=== PATIENT | male | born 1945 | race Caucasian/White ===

== ENCOUNTER 2021-02-13 15:23 | Inpatient (IN) | payer MEDICARE, OTHER, SELFPAY ==
[2021-02-13] VITALS (9 sets, daily range): BP systolic 102–123; BP diastolic 57–69; PULSE 61–75; RESP 16–18; TEMP 36.5–36.9; O2SAT 95–100; BMI 34.5; BMI 35.6; BMI 34.2
--- NOTE | 2021-02-13 16:17 | XRR_ITS ---
PROCEDURE INFORMATION: Exam: XR Chest Exam date and time: 02/13/2021 4:17 PM Age: 75 years old Clinical indication: Pain; Chest pressure; Additional info: Chest tpain TECHNIQUE: Imaging protocol: XR of the chest. Views: 1 view. COMPARISON: No relevant prior studies available. FINDINGS: Lungs: Emphysematous changes. Prominent coarse interstitial markings suggesting interstitial fibrosis. Pleural spaces: Unremarkable. No pleural effusion. No pneumothorax. Heart/Mediastinum: Cardiomegaly. Bones/joints: Unremarkable. XR/XR chest 1V portable [id number] IMPRESSION: 1. Cardiomegaly. 2. Emphysematous changes. 3. Prominent coarse interstitial markings suggesting interstitial fibrosis. Radiation Dose CTDIVOL = (mGy): DLP = (mGy-cm)
--- NOTE | 2021-02-13 16:19 | ED_ITS ---
HPI - Chest Pain General: Chief Complaint: Shortness of Breath/Dyspnea Stated Complaint: SOB Time Seen by Provider: 02/13/21 15:39 History of Present Illness: HPI narrative: This patient presents to emergency department by private vehicle. Both he and his spouse are traveling from [place] on vacation. He has chronic kidney disease and requires 3 times a week dialysis. He received his last dialysis and [place] this morning. He has felt weak over the past couple of days and had some episodes of chest pain today that concerned the so therefore she brought him to the emergency department. Chest pain is gone now. He states it was relieved by nitroglycerin given by his . He has known coronary artery disease and has had stents placed a number of years ago as well as 2 years ago. He is currently taking Eliquis for history of atrial fib. He also has diabetes. His is concerned that he may have been too rapidly dialyzed while on vacation due to the short duration dialysis. He states he is not eaten today but thus not unusual pr edialysis. He denies any fevers or chills or other illness. His is not ill. They both had COVID-19 and are both immunized as well to COVID-19. He is taking his usual medications today. MD complaint: chest heaviness Pertinent past history: coronary artery disease Onset: during rest Relieving factors: nitroglycerin Associated symptoms: Reports no associated symptoms; Deny abdominal pain, dyspnea, fever(s), nausea, palpitations or vomiting Review of Systems Const: Denies: fever(s) or chills Eyes: Denies: change in vision ENMT: Denies: throat pain or odynophagia Card: Reports: chest pain and lightheadedness; Denies: palpitations, irregular heart rhythm or swelling of feet/ankles Resp: Denies: dyspnea, productive cough or non-productive cough GI: Denies: abdominal pain, nausea or vomiting : Denies: flank pain Musc: Denies: neck pain, back pain or extremity pain Skin/Breast: Denies: rash Neuro: Denies: headache(s) or numbness in extremities Psych: Denies: anxiety or depression Patrick/Lymph: Reports: easy bruising; Denies: easy bleeding or petechiae All/Imm: Denies: urticaria Physical Exam Const: COMMON NORMALS: no acute distress, patient oriented x3 and alert GENERAL APPEARANCE: cooperative ORIENTATION/CONSCIOUSNESS: Yes awake HENMT: COMMON NORMALS: normocephalic HEAD & SCALP: normal to inspection and normocephalic FACE & SINUS: normal facial exam MOUTH: other (Mask per protocol) Eye: COMMON NORMALS: Equal, round and reactive pupils present, EOMs intact bilaterally and no scleral icterus PUPIL: Yes Equal, round and reactive pupils present Neck/C-Spine: COMMON NORMALS: full ROM, no lymphadenopathy, supple, no JVD and No carotid bruits Chest: COMMONS NORMALS: normal inspection of the chest Resp: COMMON NORMALS: normal respiratory effort, No retractions, No use of accessory muscles and clear to auscultation bilaterally AUSCULTATION: clear to auscultation bilaterally Cardio: COMMON NORMALS: no JVD, regular rhythm, No murmurs present (Cardio) and Peripheral pulses 2+ throughout RHYTHM: regular rhythm PERIPHERAL PULSES: Peripheral pulses 2+ throughout GI: COMMON NORMALS: Normal to inspection, nondistended, normoactive bowel sounds present, Soft to palpation, non-tender and No hepatosplenomegaly present PALPATION: Yes Soft to palpation and Yes No hepatosplenomegaly present : COMMON NORMALS: Yes no CVA tenderness BLADDER/KIDNEY EXAM: Yes no CVA tenderness Back/Pelvis: COMMON NORMALS: no CVA tenderness, thoracic and lumbar spine normal to inspection, no thoracic nor lumbar tenderness, thoraco-lumbar ROM normal and straight leg raise negative bilaterally Extremity: COMMON NORMALS: normal to inspection, capillary refill normal, no calf tenderness and no pedal edema LEFT UPPER EXTREMITY: Yes lower arm (Fistula noted in the left forearm.) Neuro: COMMON NORMALS: patient oriented x3, moves all extremities and no focal motor deficits SENSORIUM/ORIENTATION: Yes alert SPEECH: speech normal Skin: COMMON NORMALS: no rashes or lesions noted GENERAL SKIN EXAM: no rashes or lesions noted Course Reevaluation(s): Reevaluation #1: The patient has significant anemia more so than I would expect even with chronic kidney disease. With known coronary artery disease it is imperative that we give him blood. We will also have to cycle his troponins to ensure that he is not suffering any ongoing myocardial injury. He is currently denies any chest pain at this time. I discussed this with both patient and spouse who are in agreement. We will go ahead and contact the hospitalist regarding observation status. Vital Signs: Vital signs: Vital Signs Temperature 97.7 F 02/13/21 15:31 Pulse Rate 74 02/13/21 17:18 Respiratory Rate 18 02/13/21 17:18 Blood Pressure 109/62 02/13/21 17:18 Pulse Oximetry 95 02/13/21 17:18 MDM - Chest Pain Lab Data: Labs: Lab Results 02/13/21 02/13/21 02/13/21 16:30 16:30 16:30 WBC 10.5 10^3/uL H 10 ^3/uL (4.0-10.0) RBC 1.79 10^6/uL L 10 ^6/uL (4.1-5.3) Hgb 5.9 g/dL L* g/dL (11.7-16.6) Hct 19.2 % L* % (42.0-52.0) MCV 107.3 fl H fl (80-94) MCH 33.0 pg pg (28.0-34.0) MCHC 30.7 g/dL g/dL (30.0-36.0) RDW 16.3 % H % (12.1-15.1) Plt Count 198 10^3/cmm 10^3 /cmm (130-400) MPV 10.6 fL H fL (7.4-10.4) Neut % (Auto) 80.6 % % Lymph % (Auto) 11.1 % % [place] % (Auto) 6.7 % % Eos % (Auto) 0.4 % % Baso % (Auto) 0.3 % % Neut # (Auto) 8.49 10^3/uL H 10 ^3/uL (1.8-7.7) Lymph # (Auto) 1.2 10^3/uL 10^3/ uL (0.8-4.8) [place] # (Auto) 0.7 10^3/uL 10^3/ uL (0.2-0.9) Eos # (Auto) 0.0 10^3/uL 10^3/ uL (0.0-0.8) Baso # (Auto) 0.0 10^3/uL 10^3/ uL (0.0-0.1) Nucleated RBC % (a uto) 0 % % Nucleated RBCs # 0.0 /100WBC /100W BC Sodium 131 mmol/L L mmol /L (136-145) Potassium 3.9 mmol/L mmol/L (3.5-5.1) Chloride 92 mmol/L L mmol/ L (98-107) Carbon Dioxide 21 mmol/L L mmol/ L (22-29) Anion Gap 21.9 H (5-19) BUN 27 mg/dL H mg/dL (8-23) Creatinine 3.1 mg/dL H mg/dL (0.7-1.2) GFR Calculation Not Reportable Glucose 289 mg/dL H mg/dL (65-115) Calculated Osmolal ity 288 mOsm/kg mOsm/ kg (285-295) Calcium 8.4 mg/dL L mg/dL (8.5-10.5) Magnesium 2.0 mg/dL mg/dL (1.7-2.3) Total Bilirubin 0.4 mg/dL mg/dL (0.15-1.2) AST 15 U/L U/L (0-40) ALT 12 U/L U/L (0-41) Alkaline Phosphata se 78 IU/L IU/L (40-130) Troponin T Baselin e 67 ng/L H ng/L (0-15) Total Protein 6.2 g/dL L g/dL (6.6-8.7) Albumin 3.2 g/dL L g/dL (3.5-5.2) Globulin 3.0 g/dL g/dL (1.3-4.6) EKG Data^: EKG 1: Attestation: I personally reviewed and interpreted this EKG as follows: (Patient has ventricular rate of 74 bpm. Does have first-degree AV block. Appears to be in sinus rhythm. No acute ST-T wave changes noted.) Discharge Plan Discharge Patient Disposition: Placed in Observation Clinical Impression: Elevated troponin Anemia Qualifiers: Anemia type: due to chronic kidney disease Chronic kidney disease stage: on chronic dialysis Qualified Code(s): N18.6 - End stage renal disease Chronic kidney disease Qualifiers: Chronic kidney disease stage: on chronic dialysis Qualified Code(s): N18.6 - End stage renal disease Coding Level of Care Code ED Roll Cleaner for [facility] Fwd Exam Comprehensive
[2021-02-13 17:20] LABS: Basophils % 0.3 %; Eosinophils % 0.4 %; Lymphocytes # 1.2 10^3/uL (0.8-4.8); Lymphocytes % 11.1 %; Mean Corpuscular HGB Conc 30.7 g/dL (30.0-36.0); Mean Corpuscular Volume 107.3 fl (80-94); Mean Platelet Volume 10.6 fL (7.4-10.4); Monocytes # 0.7 10^3/uL (0.2-0.9); Monocytes % 6.7 %; Neutrophils # 8.49 10^3/uL (1.8-7.7); Neutrophils % 80.6 %; Nucleated Red Blood Cells % 0 %; Platelet Count 198 10^3/cmm (130-400); Red Blood Count 1.79 10^6/uL (4.1-5.3); Red Cell Distribution Width 16.3 % (12.1-15.1); White Blood Count 10.5 10^3/uL (4.0-10.0)
[2021-02-13 17:43] LABS: Alanine Aminotransferase 12 U/L (0-41); Albumin Level 3.2 g/dL (3.5-5.2); Alkaline Phosphatase 78 IU/L (40-130); Anion Gap 21.9 (5-19); Aspartate Amino Transferase 15 U/L (0-40); Blood Urea Nitrogen 27 mg/dL (8-23); Calcium 8.4 mg/dL (8.5-10.5); Carbon Dioxide 21 mmol/L (22-29); Chloride 92 mmol/L (98-107); Glucose 289 mg/dL (65-115); Osmolality Calculated 288 mOsm/kg (285-295); Potassium 3.9 mmol/L (3.5-5.1); Sodium 131 mmol/L (136-145); Total Bilirubin 0.4 mg/dL (0.15-1.2); Total Protein 6.2 g/dL (6.6-8.7)
[2021-02-13 17:44] LABS: Troponin(5th) Baseline 67 ng/L (0-15)
[2021-02-13 17:54] LABS: Hematocrit 19.2 % (42.0-52.0); Hemoglobin 5.9 g/dL (11.7-16.6)
--- NOTE | 2021-02-13 18:18 | ECG_ITS ---
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 Measurements Intervals [place] Rate: 73 P: 139 CT: 252 QRS: 11 QRSD: 108 T: 64 QT: 417 QTc: 460 Interpretive Statements SINUS RHYTHM WITH FIRST DEGREE AV BLOCK WITH OCCASIONAL VENTRICULAR PREMATURE COMPLEXES NONSPECIFIC T-WAVE ABNORMALITY No previous ECG available for comparison Electronically Signed On 02-14-2021 13:24:53 BENCH WORKER BINDING by Lilia Meza M.D. [email or web address]/[id number]
[2021-02-13 19:15] LABS: Troponin 5 2HR 70.93 ng/L (0-15); Troponin 5 2HR Delta 3.93 ABS# (0-10)
[2021-02-13] MEDS: HYDROcodone-acetaminophen 10-325 mg Tablet 1 TAB PO (19:35)
--- NOTE | 2021-02-13 19:53 | PM.HP ---
Providers/Chief Complaint Chief Complaint: SOB History of Present Illness Morales Jerez is a 75 year old male with past medical history of coronary artery disease, hypertension, atrial fibrillation, on Eliquis, dyslipidemia, COPD, diabetes, chronic anemia, and end-stage renal disease on hemodialysis who is presenting to emergency room with complaints of shortness of breath and chest pain which started about 2 weeks ago and gradually got worse. The patient states that his chest pain got better with nitroglycerin earlier. He is from a different state and travels with his . They have scheduled their dialysis treatments in different facilities. Last dialysis was in [place] this morning. He was told then that he had severe anemia. Today in the emergency room his hemoglobin is 5.9. He reports one episode of hematuria about 2 months ago which resolved. He reports that his stool is always dark due to medications that he takes for his end-stage renal disease. Never had blood in the stool. He also mentions that his doctors in [place] were considering stress test. His troponin was elevated today 67 with delta being only 4. Sinus rhythm with nonspecific T wave abnormalities and first-degree AV block. No acute ischemia. The patient reports previous anemia. Review of Systems General: Reports: 10 or more systems reviewed and unremarkable except in HPI and below Medications/Allergies Home Medications Medication Instructions Recorded Confirmed Last Taken Type apixaban [Eliquis] 2.5 mg PO BID 02/13/21 02/13/21 02/12/21 History aspirin 81 mg PO DAILY 02/13/21 02/13/21 02/12/21 History cyclobenzaprine 10 mg PO TID PRN 02/13/21 02/13/21 Unknown History dulaglutide [Trulicity] 1.5 mg SUBCUT Q7D 02/13/21 02/13/21 02/11/21 History escitalopram oxalate 20 mg PO DAILY 02/13/21 02/13/21 02/12/21 History ferrous sulfate [FeroSul] 325 mg PO DAILY 02/13/21 02/13/21 02/12/21 History hydrocodone-acetaminophen 1 tab PO Q6H PRN 02/13/21 02/13/21 Unknown History insulin glargine [Lantus Solostar 30 unit SUBCUT BEDTIME 02/13/21 02/13/21 02/12/21 History U-100 Insulin] insulin lispro [Humalog KwikPen See Rx Instructions .ROUTE .COMPLEX 02/13/21 02/13/21 Unknown History Insulin] metoprolol tartrate 50 mg PO BID 02/13/21 02/13/21 Unknown History nitroglycerin 0.4 mg SUBLINGUAL Q5MIN PRN 02/13/21 02/13/21 02/13/21 History omega-3 fatty acids-fish oil [Fish 1 cap PO BID 02/13/21 02/13/21 02/12/21 History Oil] rosuvastatin 40 mg PO DAILY 02/13/21 02/13/21 02/12/21 History sucroferric oxyhydroxide [Velphoro] 500 mg PO .TID & AT BEDTIME 02/13/21 02/13/21 02/12/21 History Allergies Allergy/AdvReac Type Severity Reaction Status Date / Time codeine AdvReac ADR-Nausea Verified 02/13/21 19:26 Vitals/I&O/Wt Last Vital Signs Temp 97.7 F 02/13/21 15:31 Pulse 74 02/13/21 17:18 Resp 18 02/13/21 17:18 BP 109/62 02/13/21 17:18 Pulse Ox 95 02/13/21 17:18 Weight last 48 hrs Weight 112.491 kg Physical Exam Narrative: EXAM NARRATIVE: The patient is awake alert oriented. No acute distress. Mood and affect are appropriate. Responses are adequate. Normal speech. Skin warm and dry. Moist mucous brains Eyes PERRL, extraocular muscles are intact Neck supple. No JVD Lungs are clear to auscultation bilaterally. No wheezes or crackles Heart S1, S2, regular Abdomen soft, nontender, bowel sounds are present Extremities trace edema no cyanosis no calf tenderness bilaterally Neuro examination is nonfocal. Data : 02/13/21 16:30 02/13/21 16:30 Other Labs: Laboratory Results WBC 10.5 10^3/uL (4.0-10.0) H 02/13/21 16:30 RBC 1.79 10^6/uL (4.1-5.3) L 02/13/21 16:30 Hgb 5.9 g/dL (11.7-16.6) L* 02/13/21 16:30 Hct 19.2 % (42.0-52.0) L* 02/13/21 16: MCV 107.3 fl (80-94) H 02/13/21 16:30 MCH 33.0 pg (28.0-34.0) 02/13/21 16: MCHC 30.7 g/dL (30.0-36.0) 02/13/21 16:30 RDW 16.3 % (12.1-15.1) H 02/13/21 16:30 Plt Count 198 10^3/cmm (130-400) 02/13/21 16:30 MPV 10.6 fL (7.4-10.4) H 02/13/21 16:30 Neut % (Auto) 80.6 % 02/13/21 16:30 Lymph % (Auto) 11.1 % 02/13/21 16:30 [place] % (Auto) 6.7 % 02/13/21 16:30 Eos % (Auto) 0.4 % 02/13/21 16:30 Baso % (Auto) 0.3 % 02/13/21 16:30 Neut # (Auto) 8.49 10^3/uL (1.8-7.7) H 02/13/21 16:30 Lymph # (Auto) 1.2 10^3/uL (0.8-4.8) 02/13/21 16:30 [place] # (Auto) 0.7 10^3/uL (0.2-0.9) 02/13/21 16:30 Eos # (Auto) 0.0 10^3/uL (0.0-0.8) 02/13/21 16:30 Baso # (Auto) 0.0 10^3/uL (0.0-0.1) 02/13/21 16:30 Nucleated RBC % (auto) 0 % 02/13/21 16: Nucleated RBCs # 0.0 /100WBC 02/13/21 16:30 Sodium 131 mmol/L (136-145) L 02/13/21 16:30 Potassium 3.9 mmol/L (3.5-5.1) 02/13/21 16:30 Chloride 92 mmol/L (98-107) L 02/13/21 16:30 Carbon Dioxide 21 mmol/L (22-29) L 02/13/21 16:30 Anion Gap 21.9 (5-19) H 02/13/21 16:30 BUN 27 mg/dL (8-23) H 02/13/21 16:30 Creatinine 3.1 mg/dL (0.7-1.2) H 02/13/21 16:30 GFR Calculation Not Reportable 02/13/21 16:30 Glucose 289 mg/dL (65-115) H 02/13/21 16:30 Calculated Osmolality 288 mOsm/kg (285-295) 02/13/21 16:30 Calcium 8.4 mg/dL (8.5-10.5) L 02/13/21 16:30 Magnesium 2.0 mg/dL (1.7-2.3) 02/13/21 16:30 Total Bilirubin 0.4 mg/dL (0.15-1.2) 02/13/21 16:30 AST 15 U/L (0-40) 02/13/21 16:30 ALT 12 U/L (0-41) 02/13/21 16:30 Alkaline Phosphatase 78 IU/L (40-130) 02/13/21 16:30 Troponin T Baseline 67 ng/L (0-15) H 02/13/21 16:30 Troponin T 120 Minute 70.93 ng/L (0-15) H 02/13/21 18:41 Delta Troponin T 3.93 ABS# (0-10) 02/13/21 18:41 Total Protein 6.2 g/dL (6.6-8.7) L 02/13/21 16:30 Albumin 3.2 g/dL (3.5-5.2) L 02/13/21 16:30 Globulin 3.0 g/dL (1.3-4.6) 02/13/21 16:30 Blood Type O Positive 02/13/21 18:41 Rho(D) Type Positive 02/13/21 18:41 Antibody Screen Negative 02/13/21 18:41 Impressions Chest X-Ray 02/13/21 16:17 IMPRESSION: 1. Cardiomegaly. 2. Emphysematous changes. 3. Prominent coarse interstitial markings suggesting interstitial fibrosis. Radiation Dose CTDIVOL = (mGy): DLP = (mGy-cm) A&P Assessment and plan (1) Anemia: Status: Acute Qualifiers: Anemia type: due to chronic kidney disease Chronic kidney disease stage: on chronic dialysis Qualified Code(s): N18.6 - End stage renal disease; D63.1 - Anemia in chronic kidney disease; Z99.2 - Dependence on renal dialysis (2) Elevated troponin: Status: Acute (3) Troponin I above reference range: Status: Acute (4) End stage renal disease: Status: Acute (5) Chest pain: Status: Acute (6) Coronary artery disease: Status: Acute (7) Diabetes: Status: Acute (8) Atrial fibrillation: Status: Acute Additional A&P Information Morales Jerez is a 75 year old male with past medical history of coronary artery disease, hypertension, atrial fibrillation, on Eliquis, dyslipidemia, COPD, diabetes, chronic anemia, and end-stage renal disease on hemodialysis who is presenting to emergency room with complaints of chest pain, shortness of breath. Is found to have severe anemia. No evidence of active bleeding at this point. Most likely it is related to chronic kidney disease. Being admitted for observation. We will closely monitor his H&H every 6 hours. 2 units are ordered in the emergency room. I will order anemia work-up. If fecal occult blood testing is positive we will ask for GI consult. Chest pain and shortness of breath most likely due to severe anemia. He has history of coronary artery disease and most likely has demand ischemia. Will manage it with transfusion. We will monitor his troponin level and EKG. If the pain persists after the transfusion will consider cardiology work-up. Otherwise he can be discharged and he can follow-up with his primary cable former to follow previous plan of care. We will continue his home aspirin, statin and beta-ruperto. History of atrial fibrillation. We will continue his home medications except for Eliquis. If the fecal occult blood testing is negative we will resume it. Hyponatremia. Most likely due to kidney disease. Diabetes. Continue home medications and insulin sliding scale. End-stage renal disease. His dialysis was today. Most likely he will might be able to go home tomorrow and continue follow-up with his primary care team. CODE STATUS. He wants to be full code. The plan of care was discussed with the patient and his . They verbalized understanding and agreement. Attestations Medical Necessity Statement*: Observation Coding Level of Care Code Acute Shoveler for [facility] Fwd Diagnoses Anemia N18.6; D63.1; Z99.2 Anemia type: due to chronic kidney disease Chronic kidney disease stage: on chronic dialysis Elevated troponin R77.8 Troponin I above reference range R77.8 End stage renal disease N18.6 Chest pain R07.9 Coronary artery disease I25.10 Diabetes E11.9 Atrial fibrillation I48.91
[2021-02-13 21:15] LABS: Glucose Point of Care 220 mg/dL (70-110)
[2021-02-13 21:27] LABS: Vitamin B12 251 pg/mL (232-1245)
[2021-02-13] MEDS: insulin lispro 100 unit/1 mL SUBCUT (21:40)
[2021-02-13] MEDS: insulin glargine 100 units/1 mL 30 UNIT SUBCUT (21:40)
--- NOTE | 2021-02-13 22:18 | ECG_ITS ---
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 Measurements Intervals [place] Rate: 71 P: 114 HI: 262 QRS: 17 QRSD: 105 T: 64 QT: 414 QTc: 450 Interpretive Statements SINUS RHYTHM WITH FIRST DEGREE AV BLOCK NONSPECIFIC T-WAVE ABNORMALITY Compared to ECG 02/13/2021 17:48:45 Ventricular premature complex(es) no longer present T-wave abnormality still present Electronically Signed On 02-14-2021 13:24:19 PEDIATRICIAN/MEDICAL DOCTOR by Lilia Meza M.D. [id number]
[2021-02-13] MEDS: sodium chloride 0.9% (100 ml) 100 ML 10 ML (22:35)
[2021-02-13 23:21] LABS: Hemoglobin 5.6 g/dL (11.7-16.6)
[2021-02-13 23:22] LABS: Hematocrit 17.7 % (42.0-52.0)
[2021-02-13 23:36] LABS: Iron 73 ug/dL (59-158); Transferrin 178 mg/dL (200-360)
[2021-02-13 23:50] LABS: Ferritin 1200 ng/mL (30-400)
[2021-02-14] VITALS (18 sets, daily range): BP systolic 102–128; BP diastolic 6–64; PULSE 63–102; RESP 16–18; TEMP 36.5–36.9; O2SAT 94–100
[2021-02-14 06:46] LABS: Glucose Point of Care 170 mg/dL (70-110)
[2021-02-14] MEDS: aspirin 81 mg EC Tablet PO (09:38)
[2021-02-14] MEDS: docusate sodium 100 mg Capsule PO (09:38)
[2021-02-14] MEDS: escitalopram 10 mg Tablet 20 MG PO (09:39)
[2021-02-14] MEDS: metoprolol tartrate 50 mg Tablet PO (09:39)
[2021-02-14] MEDS: atorvastatin 40 mg Tablet 80 MG PO (09:41)
[2021-02-14] MEDS: famotidine 20 mg Tablet PO (09:41)
[2021-02-14 10:29] LABS: Hematocrit 26.9 % (42.0-52.0)
[2021-02-14 10:48] LABS: Anion Gap 16.9 (5-19); Blood Urea Nitrogen 45 mg/dL (8-23); Calcium 8.6 mg/dL (8.5-10.5); Carbon Dioxide 25 mmol/L (22-29); Chloride 97 mmol/L (98-107); Glucose 157 mg/dL (65-115); Magnesium 2.2 mg/dL (1.7-2.3); Osmolality Calculated 295 mOsm/kg (285-295); Potassium 3.9 mmol/L (3.5-5.1); Sodium 135 mmol/L (136-145)
--- NOTE | 2021-02-14 10:54 | USCV_ITS ---
Morales Jerez Age: 75 Gender: M : 1945 Exam Date: 02/14/2021 12:32 Ordering Phys: Torri Meehan MD Technologist: Exam Location: [facility] [place] Indication: CHEST PAIN BP: 134 / 78 HR: 62 Rhythm: Sinus Technical Quality: Adequate MEASUREMENTS (Male / Female) Normal Values 2D ECHO LVOT Diameter 2.0 cm LV Ejection Fraction MOD 2C 61.0 % LV Ejection Fraction 2C AL 60.8 % LA Diameter 4.0 cm LA Width 4.3 cm LA Height 5.8 cm RA Width 5.0 cm RA Height 5.6 cm Aorta at Sinotubular Diameter 3.5 cm DOPPLER AV Peak Velocity 145.0 cm/s LVOT Peak Velocity 99.0 cm/s AV Area Cont Eq vti 1.7 cm squared AV Area Cont Eq pk 2.2 cm squared MV Area PHT 5.0 cm squared Mitral E to A Ratio 0.9 MV E' Velocity 47.5 cm/s Mitral E to MV E' Ratio 9.5 Mitral E to LV E' Lateral Ratio 9.9 Mitral E to LV E' Septal Ratio 9.1 TR Peak Velocity 268.7 cm/s TR Peak Gradient 28.9 mmHg TV Peak E Velocity 111.0 cm/s Right Atrial Pressure 3.0 mmHg Pulmonary Artery Systolic Pressu 31.9 mmHg FINDINGS Left Ventricle Normal left ventricular size, systolic function and wall thickness, with no regional wall motion abnormalities. Left ventricular ejection fraction is estimated at 60%. Right Ventricle Normal right ventricular size and systolic function. Right ventricular systolic pressure 51 mmHg. Right Atrium Mildly increased right atrial size. Left Atrium Mildly increased left atrial size. Mitral Valve Mildly thickened mitral valve. No mitral valve stenosis. Trace mitral valve regurgitation. Aortic Valve Aortic valve not well visualized. No aortic valve stenosis. No aortic valve regurgitation. Tricuspid Valve No tricuspid valve stenosis. Moderate tricuspid valve regurgitation. Pulmonic Valve Pulmonic valve not well visualized. Pericardium No pericardial effusion. Aorta Normal size aortic root and proximal ascending aorta. CONCLUSIONS 1. Normal left ventricular size, systolic function and wall thickness, with no regional wall motion abnormalities. Left ventricular ejection fraction is estimated at 60%. 2. Moderate tricuspid valve regurgitation. 3. Mild biatrial enlargement. 4. Moderate pulmonary hypertenion with pulmonary artery pressure estimated at 51 mm Hg. 5. No prior similar studies to compare. Lilia Meza MD (Electronically Signed) Final Date: 14 February 2021 20:17 S
[2021-02-14 11:05] LABS: Hemoglobin 8.8 g/dL (11.7-16.6)
[2021-02-14 11:42] LABS: Glucose Point of Care 147 mg/dL (70-110)
--- NOTE | 2021-02-14 11:46 | PM.PN ---
Subjective Subjective: Interval history: Seen this morning. present at bedside. states that patient has had a history of anemia and he had an EGD done where they found something where it had to be fixed. She is unable to give me any other details apart from this. She also states that patient takes a medication Velphoro which causes her stools to be black at all times so they are unable to tell whether there is actually blood in there or not. He does have a history of anemia secondary to his end-stage renal disease. Patient is on dialysis Monday. Also he of his having chest pains and was recommended to have an echo and a stress test outpatient that was scheduled for the of this month. Patient also had chest pain yesterday on arrival which could be secondary to his anemia but they are not sure. They would be comfortable if to get a stress test done inpatient along with echo to be on the safe side. When seen patient denies any chest pain at this time. Vitals/I&O/Wt Last Vital Signs Temp 97.7 F 02/14/21 07:14 Pulse 75 02/14/21 07:14 Resp 17 02/14/21 07:14 BP 104/57 02/14/21 07:14 Pulse Ox 96 02/14/21 07:14 02/13/21 02/14/21 02/14/21 22:59 06:59 14:59 Intake Total 0 / 0 940 / 940 Output Total 100 / 100 Balance 0 / 0 840 / 840 Weight last 48 hrs Weight 111.584 kg Weight 112.854 kg Weight 112.491 kg Physical Exam Narrative: EXAM NARRATIVE: The patient is awake alert oriented. No acute distress. Mood and affect are appropriate. Responses are adequate. Normal speech. Skin warm and dry. Moist mucous membrane, present at bedside. Eyes PERRL, extraocular muscles are intact Neck supple. No JVD Lungs are clear to auscultation bilaterally. No wheezes or crackles Heart S1, S2, regular Abdomen soft, nontender, bowel sounds are present Extremities trace edema no cyanosis no calf tenderness bilaterally Neuro examination is nonfocal. Data : 02/14/21 10:05 02/14/21 10:05 A&P Assessment and plan (1) Anemia: Status: Acute Qualifiers: Anemia type: due to chronic kidney disease Chronic kidney disease stage: on chronic dialysis Qualified Code(s): N18.6 - End stage renal disease; D63.1 - Anemia in chronic kidney disease; Z99.2 - Dependence on renal dialysis (2) Elevated troponin: Status: Acute (3) Troponin I above reference range: Status: Acute (4) End stage renal disease: Status: Acute (5) Chest pain: Status: Acute (6) Coronary artery disease: Status: Acute (7) Diabetes: Status: Acute (8) Atrial fibrillation: Status: Acute Additional A&P Information Morales Jerez is a 75 year old male with past medical history of coronary artery disease, hypertension, atrial fibrillation, on Eliquis, dyslipidemia, COPD, diabetes, chronic anemia, and end-stage renal disease on hemodialysis who is presenting to emergency room with complaints of chest pain, shortness of breath. Is found to have severe anemia. No evidence of active bleeding at this point. Most likely it is related to chronic kidney disease. Being admitted for observation. We will closely monitor his H&H every 6 hours. 2 units are ordered in the emergency room. I will order anemia work-up. If fecal occult blood testing is positive we will ask for GI consult. FOBT is pending. Status post 2 units of packed RBC. Hemoglobin 8.8 this morning. We will continue to monitor. Chest pain and shortness of breath most likely due to severe anemia but does report that he was having an echo and stress test done as an outpatient since he was having chest pains prior to arrival. He has history of coronary artery disease and most likely has demand ischemia. Will manage it with transfusion. We will monitor his troponin level and EKG. patient is chest pain-free this morning. We will order echocardiogram and potentially a stress test depending on echo results. We will continue his home aspirin, statin and beta-ruperto. History of atrial fibrillation. We will continue his home medications except for Eliquis. If the fecal occult blood testing is negative we will resume it. Hyponatremia. Most likely due to kidney disease. Diabetes. Continue home medications and insulin sliding scale. End-stage renal disease. On dialysis Monday. Consult nephrology for dialysis tomorrow. CODE STATUS. He wants to be full code. The plan of care was discussed with the patient and his . They verbalized understanding and agreement. Attestations Medical Necessity Statement*: Patient will cross 2 midnight stay. Need to do further work-up. Hemoglobin needs to be monitored, FOBT pending, will check echo as well. Stress test in a.m. depending on further hemoglobin results. Time Spent in Patient Care: Greater than 35 minutes (>than 50% of time spent in counselling and/or direct pt care on unit). Coding Level of Care Code Acute Low Heel Builder for g Fwd Diagnoses Anemia N18.6; D63.1; Z99.2 Anemia type: due to chronic kidney disease Chronic kidney disease stage: on chronic dialysis Elevated troponin R77.8 Troponin I above reference range R77.8 End stage renal disease N18.6 Chest pain R07.9 Coronary artery disease I25.10 Diabetes E11.9 Atrial fibrillation I48.91
[2021-02-14] MEDS: insulin lispro 100 unit/1 mL SUBCUT ×3 (12:07→21:51)
[2021-02-14] MEDS: perflutren protein-a microsphr 0.22 mg/mL SDV 3 mL IV (13:25)
--- NOTE | 2021-02-14 15:56 | P.CONIM_ITS ---
Providers/Reason For Consult Consulting Physician/Specialty*: Nephro Reason for Consult*: ESRD mgmt Attending Physician: Torri Meehan MD History of Present Illness History of Present Illness Thank you for consultation, today had the pleasure reviewing this very pleasant 75-year-old gentleman for evaluation of end-stage kidney disease on hemodialysis. Over the last 2 weeks, he developed increasing shortness of breath and some chest discomfort. On arrival here he was found to have anemia with a hemoglobin 5.9, dropping down to 5.6 on recheck. After receiving 7 units of red blood cells, this increased 8.8. He does feel significantly better now, no further chest discomfort but does have some shortness of breath on exertion. He has not noticed any bloody bowel movements. His last endoscopy was in September at [facility] in [place]. At the time he had some spots cauterized per his . He did receive 2 units of packed red blood cells at that time. He has been on dialysis now for a number of years. He was dialyzed yesterday, he is usually on dialysis on Monday, Monday, Monday. He has a fistula in his left arm which is working nicely. Minimal extremity edema, no shortness of breath or other hypervolemic symptoms. No uremic symptoms. Hemodynamics reviewed, remained stable, last recorded blood pressure is 122/58 with a pulse of 67. Review of Systems Narrative: ROS - 12 point review of systems completed per HPI and subjective assessment, this includes Constitutional: No weakness, fatigue Respiratory: No SOB on exertion, comfortable at rest CardioVasc: No chest pain, palpitations Gastrointestinal: No nausea, no vomiting Neurological: No seizures, no AMS Derm: No new rashes, lesions or wounds Immunological: No seasonal and no food allergies Meds/Allergies Home Medications and Allergies Home Medications Medication Instructions Recorded Confirmed Last Taken Type apixaban [Eliquis] 2.5 mg PO BID 02/13/21 02/13/21 02/12/21 History aspirin 81 mg PO DAILY 02/13/21 02/13/21 02/12/21 History cyclobenzaprine 10 mg PO TID PRN 02/13/21 02/13/21 Unknown History dulaglutide [Trulicity] 1.5 mg SUBCUT Q7D 02/13/21 02/13/21 02/11/21 History escitalopram oxalate 20 mg PO DAILY 02/13/21 02/13/21 02/12/21 History ferrous sulfate [FeroSul] 325 mg PO DAILY 02/13/21 02/13/21 02/12/21 History hydrocodone-acetaminophen 1 tab PO Q6H PRN 02/13/21 02/13/21 Unknown History insulin glargine [Lantus Solostar 30 unit SUBCUT BEDTIME 02/13/21 02/13/21 02/12/21 History U-100 Insulin] insulin lispro [Humalog KwikPen See Rx Instructions .ROUTE .COMPLEX 02/13/21 02/13/21 Unknown History Insulin] metoprolol tartrate 50 mg PO BID 02/13/21 02/13/21 Unknown History nitroglycerin 0.4 mg SUBLINGUAL Q5MIN PRN 02/13/21 02/13/21 02/13/21 History omega-3 fatty acids-fish oil [Fish 1 cap PO BID 02/13/21 02/13/21 02/12/21 History Oil] rosuvastatin 40 mg PO DAILY 02/13/21 02/13/21 02/12/21 History sucroferric oxyhydroxide [Velphoro] 500 mg PO .TID & AT BEDTIME 02/13/21 02/13/21 02/12/21 History Allergies Allergy/AdvReac Type Severity Reaction Status Date / Time codeine AdvReac ADR-Nausea Verified 02/13/21 19:26 Current Medications Current Medications Generic Name Dose Route Start Last Admin Trade Name Jesusq PRN Reason Stop Dose Admin Aspirin 81 mg 02/14/21 10:00 02/14/21 09:38 Aspirin 81 Mg Ec Tablet PO 81 mg DAILY PALMIRA Administration Atorvastatin Calcium 80 mg 02/14/21 10:00 02/14/21 09:41 Atorvastatin 40 Mg Tablet PO 80 mg DAILY PALMIRA Administration Docusate Sodium 100 mg 02/14/21 10:00 02/14/21 09:38 Docusate Sodium 100 Mg Capsule PO 100 mg BID PALMIRA Administration Escitalopram Oxalate 20 mg 02/14/21 10:00 02/14/21 09:39 Escitalopram 10 Mg Tablet PO 20 mg DAILY PALMIRA Administration Famotidine 20 mg 02/14/21 10:00 02/14/21 09:41 Famotidine 20 Mg Tablet PO 20 mg BID PALMIRA Administration Insulin Glargine 30 unit 02/13/21 21:15 02/13/21 21:40 Insulin Glargine 100 Units/1 Ml SUBCUT 30 unit BEDTIME PALMIRA Administration Insulin Human Lispro 0 unit 02/14/21 10:00 02/14/21 12:07 Insulin Lispro 100 Unit/1 Ml SUBCUT 4 unit WM&BEDTIME PALMIRA Administration Protocol Metoprolol Tartrate 50 mg 02/14/21 10:00 02/14/21 09:39 Metoprolol Tartrate 50 Mg Tablet PO 50 mg BID PALMIRA Administration Vitals/I&O/Wt Last Vital Signs Temp 98.4 F 02/14/21 12:00 Pulse 67 02/14/21 14:00 Resp 17 02/14/21 12:00 BP 122/58 02/14/21 12:00 Pulse Ox 96 02/14/21 12:00 02/14/21 02/14/21 02/14/21 06:59 14:59 22:59 Intake Total 940 / 940 Output Total 100 / 100 300 / 300 Balance 840 / 840 -300 / -300 Weight last 48 hrs Weight 111.584 kg Weight 112.854 kg Weight 112.491 kg Physical Exam Narrative: EXAM NARRATIVE: Constitutional: Awake, comfortable HEENT: Wet mucosa, no jvp, non icteric Lungs: Bilaterally clear without discernible wheeze or rales in all lung zones CVS: S1 S2, no murmurs Abdo: Soft, BS ok Ext 4: Minimal edema, peripheral perfusion with no cyanosis Neurological: Grossly non-focal A&P Additional A&P Information 1. ESRD We will plan for dialysis tomorrow, 4 hours, 4 L, 3K bath, no heparin. Continue Monday, Monday, Monday schedule Dose medication for GFR less than 15 on dialysis 2. Anemia He does have a history of bleeding from his upper GI tract, and had this back in September requiring endoscopy and cauterization. Currently pending fecal occult blood testing Status post 2 units of packed red blood cells Ferritin elevated, prohibits intravenous iron use We will give a dose of EPO, however, this does take a few weeks to take effect. 3. Hemodynamics At goal 4. Chronic ESRD issues To be managed as an outpatient by his outpatient team including secondary hyperparathyroidism etc. Of note he takes VELPHORO, given some PhosLo while he is admitted Thank you for consultation, it is a pleasure to follow these cases with you Exam and interview performed with aid of bedside RN using telemedicine Time spent 20 min inc > 50% of time in face to face counseling Link Meek MD [facility] [phone] Consult Attestations Medical Necessity Statement: Eval for ESRD mgmt Coding Level of Care Code Acute Oil And Gas Superintendent for Chg Marianne
[2021-02-14 16:09] LABS: Hematocrit 23.3 % (42.0-52.0); Hemoglobin 7.5 g/dL (11.7-16.6)
--- NOTE | 2021-02-14 17:04 | PC.NURSE ---
OB STOOL OB STOOL POSITIVE - HEMOGLOBIN 7.5 - DR LUBIN NOTIFIED PER THIS NURSE
--- NOTE | 2021-02-14 17:11 | PM.CONSULT ---
Providers/Reason For Consult Consulting Physician/Specialty*: Dangelo Pope MD Reason for Consult*: Occult blood positive in stool associated with anemia requiring blood transfusion Requesting Physician: Dr. Meehan Attending Physician: Torri Meehan MD History of Present Illness History of Present Illness Chief Complaint: Short of breath History of present illness: This is a pleasant 75 years old gentleman with multiple medical comorbidities in the form of coronary artery disease, hypertension, atrial fibrillation, on Eliquis, dyslipidemia, COPD, diabetes, chronic anemia, and end-stage renal disease on hemodialysis who is presenting to emergency room with complaints of shortness of breath and chest pain which started about 2 weeks ago and gradually got worse. Patient was admitted to the hospitalist service and received couple of units of packed RBCs with initial hemoglobin of 5.9. Patient recalls that his stool has been always black due to medications he is taking for his kidney condition. No evidence of hematemesis or hematochezia at the moment. Patient reports that he had a previous EGD and cauterization was done but he does not recall the exact details. It was found occult blood positive in stool and general surgery was consulted for further evaluation potential intervention. Patient receives hemodialysis Monday and Fridays through a left distal forearm AV fistula. Review of Systems General: Reports: 10 or more systems reviewed and unremarkable except in HPI and below Meds/Allergies Home Medications and Allergies Home Medications Medication Instructions Recorded Confirmed Last Taken Type apixaban [Eliquis] 2.5 mg PO BID 02/13/21 02/13/21 02/12/21 History aspirin 81 mg PO DAILY 02/13/21 02/13/21 02/12/21 History cyclobenzaprine 10 mg PO TID PRN 02/13/21 02/13/21 Unknown History dulaglutide [Trulicity] 1.5 mg SUBCUT Q7D 02/13/21 02/13/21 02/11/21 History escitalopram oxalate 20 mg PO DAILY 02/13/21 02/13/21 02/12/21 History ferrous sulfate [FeroSul] 325 mg PO DAILY 02/13/21 02/13/21 02/12/21 History hydrocodone-acetaminophen 1 tab PO Q6H PRN 02/13/21 02/13/21 Unknown History insulin glargine [Lantus Solostar 30 unit SUBCUT BEDTIME 02/13/21 02/13/21 02/12/21 History U-100 Insulin] insulin lispro [Humalog KwikPen See Rx Instructions .ROUTE .COMPLEX 02/13/21 02/13/21 Unknown History Insulin] metoprolol tartrate 50 mg PO BID 02/13/21 02/13/21 Unknown History nitroglycerin 0.4 mg SUBLINGUAL Q5MIN PRN 02/13/21 02/13/21 02/13/21 History omega-3 fatty acids-fish oil [Fish 1 cap PO BID 02/13/21 02/13/21 02/12/21 History Oil] rosuvastatin 40 mg PO DAILY 02/13/21 02/13/21 02/12/21 History sucroferric oxyhydroxide [Velphoro] 500 mg PO .TID & AT BEDTIME 02/13/21 02/13/21 02/12/21 History Allergies Allergy/AdvReac Type Severity Reaction Status Date / Time codeine AdvReac ADR-Nausea Verified 02/14/21 17:27 Current Medications Current Medications Generic Name Dose Route Start Last Admin Trade Name Freq PRN Reason Stop Dose Admin Aspirin 81 mg 02/14/21 10:00 02/14/21 09:38 Aspirin 81 Mg Ec Tablet PO 81 mg DAILY PALMIRA Administration Atorvastatin Calcium 80 mg 02/14/21 10:00 02/14/21 09:41 Atorvastatin 40 Mg Tablet PO 80 mg DAILY PALMIRA Administration Calcium Acetate 1,334 mg 02/14/21 18:00 02/14/21 17:09 Calcium Acetate 667 Mg Capsule PO Not Given TIDWM PALMIRA Docusate Sodium 100 mg 02/14/21 10:00 02/14/21 17:09 Docusate Sodium 100 Mg Capsule PO Not Given BID PALMIRA Escitalopram Oxalate 20 mg 02/14/21 10:00 02/14/21 09:39 Escitalopram 10 Mg Tablet PO 20 mg DAILY PALMIRA Administration Insulin Glargine 30 unit 02/13/21 21:15 02/13/21 21:40 Insulin Glargine 100 Units/1 Ml SUBCUT 30 unit BEDTIME PALMIRA Administration Insulin Human Lispro 0 unit 02/14/21 10:00 02/14/21 12:07 Insulin Lispro 100 Unit/1 Ml SUBCUT 4 unit WM&BEDTIME PALMIRA Administration Protocol Metoprolol Tartrate 50 mg 02/14/21 10:00 02/14/21 17:09 Metoprolol Tartrate 50 Mg Tablet PO Not Given BID PALMIRA Vitals/I&O/Wt Last Vital Signs Temp 98.1 F 02/14/21 16:00 Pulse 63 02/14/21 16:00 Resp 18 02/14/21 16:00 BP 102/60 02/14/21 16:00 Pulse Ox 97 02/14/21 16:00 02/14/21 02/14/21 02/14/21 06:59 14:59 22:59 Intake Total 940 / 940 Output Total 100 / 100 300 / 300 Balance 840 / 840 -300 / -300 Weight last 48 hrs Weight 246 lb Weight 248 lb 12.8 oz Weight 248 lb Physical Exam Const: COMMON NORMALS: no acute distress and patient oriented x3 GENERAL APPEARANCE: cooperative ORIENTATION/CONSCIOUSNESS: Yes awake, Yes oriented to person, Yes oriented to place and Yes oriented to time HENMT: COMMON NORMALS: normocephalic HEAD & SCALP: normocephalic Eye: COMMON NORMALS: Equal, round and reactive pupils present and no scleral icterus PUPIL: Yes Equal, round and reactive pupils present Lymph: LYMPHATIC: no lymphadenopathy noted Chest: COMMONS NORMALS: normal inspection of the chest Resp: COMMON NORMALS: normal respiratory effort and clear to auscultation bilaterally AUSCULTATION: clear to auscultation bilaterally Cardio: COMMON NORMALS: S1 normal heart sound present and S2 normal heart sound present; negative for No murmurs present (Cardio) HEART SOUNDS: S1 normal heart sound present and S2 normal heart sound present GI: COMMON NORMALS: Soft to palpation; negative for No hepatosplenomegaly present INSPECTION: Yes normal to inspection PALPATION: Yes Soft to palpation, No Firmness to palpation present (GI), No Tenderness to palpation present (GI), No Guarding due to palpation present (GI), No Rigid due to palpation and No No hepatosplenomegaly present Extremity: EXTREMITY IMAGE (FRONT): 1. Left forearm AV fistula have good bruit and thrill. Neuro: COMMON NORMALS: patient oriented x3 SENSORIUM/ORIENTATION: Yes oriented to person, Yes oriented to place and Yes oriented to time Psych: COMMON NORMALS: mental status grossly normal Skin: COMMON NORMALS: no rashes or lesions noted GENERAL SKIN EXAM: no rashes or lesions noted Data Micro: Micro: Microbiology 02/13/21 16:05 Occult Blood (FIT) - Final Stool Routine Col lection A&P Assessment and plan (1) Occult blood in stools: After history taking physical examination reviewing the chart. I will need to have more understanding of the patient's medical status with regard to his cardiac condition before proceeding with any endoscopies in the form of EGD and colonoscopy. We will continue coordinate care with hospitalist and nephrology services Patient can have clear liquid diet for now and n.p.o. after midnight We will obtain outside records for review with regard to the previous EGD Assurance and education All questions have been answered and all concerns have been addressed to patient's satisfaction. Thank you for consulting general surgery to participate taking care Mr. Jerez Status: Acute Consult Attestations Medical Necessity Statement: Per admitting service Time Spent in Patient Care: (>than 50% of time spent in counselling and/or direct pt care on unit). Coding Level of Care Code Acute Drum Operator for Chg Fwd Exam Comprehensive Diagnoses Occult blood in stools R19.5
[2021-02-14 17:16] LABS: Hematocrit 22.8 % (42.0-52.0); Hemoglobin 7.5 g/dL (11.7-16.6)
[2021-02-14] MEDS: pantoprazole 40 mg SDV IVP (17:20)
--- NOTE | 2021-02-14 17:35 | PC.NURSE ---
BLOOD ORDERED BLOOD ORDERED PENDING STAT H&H FOR 1704 - HAS BEEN PLACED ON HOLD PER DR RAMOS AND DR LUBIN - LAB NOTIFIED - UNABLE TO AMEND ACTUAL ORDER
[2021-02-14 17:43] LABS: Glucose Point of Care 213 mg/dL (70-110)
[2021-02-14] MEDS: epoetin alfa 1000 Unit/0.05 mL (ESRD) 20000 UNIT SUBCUT (18:10)
[2021-02-14 20:40] LABS: Glucose Point of Care 173 mg/dL (70-110)
[2021-02-14] MEDS: insulin glargine 100 units/1 mL 30 UNIT SUBCUT (21:47)
[2021-02-15] VITALS (10 sets, daily range): BP systolic 82–131; BP diastolic 50–70; PULSE 61–79; RESP 16–20; TEMP 36.4–36.7; O2SAT 92–99
[2021-02-15 01:22] LABS: Hematocrit 21.8 % (42.0-52.0); Hemoglobin 7.3 g/dL (11.7-16.6)
[2021-02-15] MEDS: pantoprazole 40 mg SDV IVP ×2 (05:04→21:28)
[2021-02-15 06:27] LABS: Basophils # 0.1 10^3/uL (0.0-0.1); Basophils % 0.5 %; Eosinophils # 0.4 10^3/uL (0.0-0.8); Eosinophils % 4.7 %; Hematocrit 22.6 % (42.0-52.0); Hemoglobin 7.3 g/dL (11.7-16.6); Lymphocytes # 2.6 10^3/uL (0.8-4.8); Lymphocytes % 28.5 %; Mean Corpuscular HGB Conc 32.3 g/dL (30.0-36.0); Mean Corpuscular Hemoglobin 33.3 pg (28.0-34.0); Mean Corpuscular Volume 103.2 fl (80-94); Mean Platelet Volume 10.4 fL (7.4-10.4); Monocytes # 0.8 10^3/uL (0.2-0.9); Monocytes % 8.4 %; Neutrophils # 5.26 10^3/uL (1.8-7.7); Neutrophils % 57.5 %; Nucleated Red Blood Cells % 0 %; Platelet Count 167 10^3/cmm (130-400); Red Blood Count 2.19 10^6/uL (4.1-5.3); Red Cell Distribution Width 17.8 % (12.1-15.1); White Blood Count 9.2 10^3/uL (4.0-10.0)
[2021-02-15 06:42] LABS: Glucose Point of Care 104 mg/dL (70-110)
[2021-02-15 06:45] LABS: Alanine Aminotransferase 9 U/L (0-41); Albumin Level 2.8 g/dL (3.5-5.2); Alkaline Phosphatase 63 IU/L (40-130); Anion Gap 16.4 (5-19); Aspartate Amino Transferase 15 U/L (0-40); Blood Urea Nitrogen 64 mg/dL (8-23); Calcium 8.2 mg/dL (8.5-10.5); Carbon Dioxide 24 mmol/L (22-29); Chloride 100 mmol/L (98-107); Globulin 2.7 g/dL (1.3-4.6); Glucose 88 mg/dL (65-115); Osmolality Calculated 302 mOsm/kg (285-295); Potassium 3.4 mmol/L (3.5-5.1); Sodium 137 mmol/L (136-145); Total Bilirubin 0.3 mg/dL (0.15-1.2); Total Protein 5.5 g/dL (6.6-8.7)
--- NOTE | 2021-02-15 07:27 | PC.NURSE ---
Received call from lab that patient has a critical creatinine of 5.6. Let Dr. Meehan know
[2021-02-15 08:03] LABS: Hematocrit 23.5 % (42.0-52.0); Hemoglobin 7.8 g/dL (11.7-16.6)
[2021-02-15] MEDS: calcium acetate 667 mg Capsule 1334 MG PO ×3 (08:59→19:28)
[2021-02-15] MEDS: docusate sodium 100 mg Capsule PO ×2 (08:59→19:28)
[2021-02-15] MEDS: aspirin 81 mg EC Tablet PO (09:00)
[2021-02-15] MEDS: escitalopram 10 mg Tablet 20 MG PO (09:00)
[2021-02-15] MEDS: metoprolol tartrate 50 mg Tablet PO (09:00)
[2021-02-15] MEDS: atorvastatin 40 mg Tablet 80 MG PO (09:00)
--- NOTE | 2021-02-15 09:49 | PC.CHAP ---
Pastoral Care Encounter/Spiritual Assessment Type of Contact [] Declined retail merchandising manager visit [] Patient/Family/Request visit [] Outpatient visit [] Follow-up visit [] Physician referral [] Code/Alert [x] Routine visit [] Staff referral [] Actively dying [] Patient sleeping [] Family support [] [] Out of room [] Palliative care [] [] Receiving care in room [] Pre-surgical visit [] Trauma [] Long length of stay [] ICU visit [] Other: Relational/Emotional Strength [x] Patient feels connected with others/family/visitors/staff [] Distress [] Loneliness/isolation [] Abandonment Spirituality of Patient [x] Person of Janett [] Attends Holiness of their Janett [x] Believes in Prayer [] Reads Bible or Faith materials [] There are Spiritual issues to be addressed Email Marketing Specialist Interventions [x] Prayer [x] Active listening [x] Non-anxious presence [x] Spiritual/emotional support [] Crisis/trauma care [] Spiritual counseling [] Bereavement support [] Provided bereavement packet [] Provided Bible/devotional materials [] Provided toy/stuffed animal, coloring book to patient or family member [] Provided Communion [] Anointing/Antlers [] Salvation [x] Completed spiritual assessment [] Other: Impact on Illness or Injury [] Angry [] Fearful [] Anxious [] Often cries [] Exhaustion [] Unable to work [] Unable to attend anabaptist [] Unable to walk/stand [] Unable to read [] Unable to drive [] Unable to eat/drink [] Unable to sleep [] Unable to be with family [] Patient intubated [] Other: Summary Time spent with patient 15 min
[2021-02-15 11:45] LABS: Glucose Point of Care 127 mg/dL (70-110)
--- NOTE | 2021-02-15 11:45 | ECG_ITS ---
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 Interpretive Statements NAME OF STUDY: LEXISCAN SESTAMIBI STRESS TEST INDICATION: Angina PROCEDURE: At the baseline, the EKG revealed sinus rhythm with a first-degree AV block. Diffuse nonspecific ST-T changes. Possible old inferior wall myocardial infarction. The baseline blood pressure was 91/44 mm Hg with a heart rate of 64 beats/min. Lexiscan was infused over a period of 20 seconds. A total of 0.4 milligrams of Lexiscan was infused. The stress phase was continued for a total of 5 minutes. Heart rate at the end of the stress phase was 71 with a blood pressure 104/49. The EKG at the peak infusion revealed no significant changes. Sestamibi was injected 20 seconds after the Lexiscan infusion. Blood pressure at the end of the recovery phase was 96/50 with a heart rate of 77 per minute. Occasional PVCs are noted during the recovery phase CONCLUSION: 1. No significant EKG changes with the LexiScan infusion 2. No LexiScan induced chest pain . occasional PVCs are noted during the recovery phase 3. Normal blood pressure and heart rate response 4. Sestamibi/sestamibi perfusion scan pending; see separate report. Electronically Signed On 02-21-2021 20:40:00 SLURRY BLENDER by Lorenzo Bains M.D. [email or web address]
--- NOTE | 2021-02-15 14:56 | PM.PN ---
Subjective Subjective: Interval history: No new issues with Mrs. Jerez today. He feels well. He denies chest pain, shortness of breath, palpitations. He did get a little bit short of breath ambulating. He denies any uremic symptoms. Hemodynamics remain stable. Vitals/I&O/Wt Last Vital Signs Temp 97.6 F 02/15/21 12:00 Pulse 71 02/15/21 12:00 Resp 17 02/15/21 12:00 BP 103/62 02/15/21 12:00 Pulse Ox 97 02/15/21 12:00 02/14/21 02/15/21 02/15/21 22:59 06:59 14:59 Intake Total 240 / 240 240 / 240 Balance 240 / -60 240 / 240 Weight last 48 hrs Weight 114.05 kg Weight 111.584 kg Weight 112.854 kg Weight 112.491 kg Physical Exam Narrative: EXAM NARRATIVE: Constitutional: Awake, comfortable HEENT: Wet mucosa, no jvp, non icteric Lungs: Bilaterally clear without discernible wheeze or rales in all lung zones CVS: S1 S2, no murmurs Abdo: Soft, BS ok Ext 4: Minimal edema, peripheral perfusion with no cyanosis Neurological: Grossly non-focal Data : 02/15/21 07:40 02/15/21 05:29 Micro: Microbiology 02/13/21 16:05 Occult Blood (FIT) - Final Stool Routine Collection A&P Additional A&P Information 1. ESRD We will plan for dialysis today, 4 hours, 4 L, 3K bath, no heparin. Continue Monday, Monday, Monday schedule Dose medication for GFR less than 15 on dialysis 2. Anemia He does have a history of bleeding from his upper GI tract, and had this back in September requiring endoscopy and cauterization. FOBT positive for EGD Status post 2 units of packed red blood cells Ferritin elevated, prohibits intravenous iron use S/p EPO, however, this does take a few weeks to take effect. 3. Hemodynamics Runs low at baseline, close monitoring during dialysis 4. Chronic ESRD issues To be managed as an outpatient by his outpatient team including secondary hyperparathyroidism etc. Of note he takes VELPHORO, given some PhosLo while he is admitted Thank you for consultation, it is a pleasure to follow these cases with you Exam and interview performed with aid of bedside RN using telemedicine Time spent 20 min inc > 50% of time in face to face counseling Link Meek MD [facility] [phone] Attestations Medical Necessity Statement*: Eval for ESRD mgmt Coding Level of Care Code Acute Animal Shelter Supervisor for Brendag Marianne
--- NOTE | 2021-02-15 16:57 | PM.PN ---
Subjective Subjective: Interval history: Patient is stating mild shortness of breath on ambulating, he walked up to the bathroom, no recurrence of chest pain however seems very concerned about his chest pain, he will get stress test tomorrow morning, hemoglobin has been stable, holding off on EGD and colonoscopy for now Vitals/I&O/Wt Last Vital Signs Temp 98.1 F 02/15/21 16:00 Pulse 64 02/15/21 16:00 Resp 18 02/15/21 16:00 BP 85/56 02/15/21 16:00 Pulse Ox 99 02/15/21 16:00 02/15/21 02/15/21 02/15/21 06:59 14:59 22:59 Intake Total 240 / 240 Balance 240 / 240 Weight last 48 hrs Weight 114.05 kg Weight 111.584 kg Weight 112.854 kg Physical Exam Narrative: EXAM NARRATIVE: Patient and comfortably in his bed S1, S2 variable Abdomen soft Lower symmetry no edema Nonfocal neuro exam Saturating well on room air Data : 02/15/21 07:40 02/15/21 05:29 Micro: Microbiology 02/13/21 16:05 Occult Blood (FIT) - Final Stool Routine Collection A&P Assessment and plan (1) Occult blood in stools: Status: Acute (2) Atrial fibrillation: Status: Acute (3) Diabetes: Status: Acute (4) Coronary artery disease: Status: Acute (5) End stage renal disease: Status: Acute (6) Chest pain: Status: Acute (7) Anemia: Status: Acute Qualifiers: Anemia type: due to chronic kidney disease Chronic kidney disease stage: on chronic dialysis Qualified Code(s): N18.6 - End stage renal disease; D63.1 - Anemia in chronic kidney disease; Z99.2 - Dependence on renal dialysis Additional A&P Information Unstable angina with a history of established coronary disease stress test tomorrow morning echo unremarkable holding metoprolol for stress test N.p.o. from midnight End-stage renal disease: Monday dialysis session Did receive iron GI blood loss acute anemia, microcytic Fit test positive however he has been taking iron supplementation, Hemodynamically stable, holding off on EGD and colonoscopy for now might need outpatient studies if remains stable A. fib without RVR holding metoprolol and anticoagulating agent for now Full code N.p.o. for midnight Otherwise renal dialysis diet DVT prophylaxis: anticoagulation on hold due to anemia Attestations Medical Necessity Statement*: Continue medical management Time Spent in Patient Care: less than 15 minutes Coding Level of Care Code Acute Associate Chief Nurse for g Fwd Diagnoses Occult blood in stools R19.5 Atrial fibrillation I48.91 Diabetes E11.9 Coronary artery disease I25.10 End stage renal disease N18.6 Chest pain R07.9 Anemia N18.6; D63.1; Z99.2 Anemia type: due to chronic kidney disease Chronic kidney disease stage: on chronic dialysis
[2021-02-15 17:46] LABS: Glucose Point of Care 140 mg/dL (70-110)
--- NOTE | 2021-02-15 18:15 | PC.NURSE ---
Dialysis nurse reports patient's blood pressure has been low at 85/56 and 91/59. In[address] Dr. Ventura.
--- NOTE | 2021-02-15 18:41 | PC.NURSE ---
Per Dr. Ventura needed to stop dialysis and get an H&H.
[2021-02-15] MEDS: HYDROcodone-acetaminophen 10-325 mg Tablet 1 TAB PO (19:38)
--- NOTE | 2021-02-15 19:58 | PC.HD ---
Pt hypotensive prior to treatment, 82/50. Pt lying in bed, denies symptoms, states that his BP has been running low lately though he's unsure if it has been that low prior to treatment. Dr Meek notified, said ok to start treatment. SBP 80s to 90s throughout most of treatment, pt denied symptoms throughout. At one point BP dropped to 76/60, pt still denied symptoms but UF turned off and within 5 minutes SBP was 103 and UF resumed. With 40 minutes remaining pt's nurse reported that Dr Ventura was concerned about the pt's BP and wanted treatment stopped. Treatment was terminated and blood returned, post BP 101/52, pt stated he felt well and was returned to his room. Dr Meek notified of early termination.
[2021-02-15 21:17] LABS: Hematocrit 26.8 % (42.0-52.0); Hemoglobin 8.7 g/dL (11.7-16.6)
[2021-02-15] MEDS: midodrine 5 mg TABLET 10 MG PO (21:28)
[2021-02-15] MEDS: insulin lispro 100 unit/1 mL SUBCUT (21:29)
[2021-02-15] MEDS: insulin glargine 100 units/1 mL 30 UNIT SUBCUT (21:29)
[2021-02-15 21:30] LABS: Glucose Point of Care 248 mg/dL (70-110)
[2021-02-15] MEDS: albumin 12.5 GM/250 ML VIAL IV (21:31)
[2021-02-16] VITALS (9 sets, daily range): BP systolic 85–128; BP diastolic 50–68; PULSE 61–90; RESP 16–20; TEMP 36.4–37.1; O2SAT 92–100
[2021-02-16 06:47] LABS: Basophils # 0.1 10^3/uL (0.0-0.1); Basophils % 0.5 %; Eosinophils # 0.4 10^3/uL (0.0-0.8); Eosinophils % 3.4 %; Hematocrit 24.1 % (42.0-52.0); Lymphocytes # 2.9 10^3/uL (0.8-4.8); Lymphocytes % 26.4 %; Mean Corpuscular HGB Conc 33.2 g/dL (30.0-36.0); Mean Corpuscular Hemoglobin 33.9 pg (28.0-34.0); Mean Corpuscular Volume 102.1 fl (80-94); Mean Platelet Volume 10.5 fL (7.4-10.4); Monocytes % 8.8 %; Neutrophils # 6.61 10^3/uL (1.8-7.7); Neutrophils % 60.1 %; Nucleated Red Blood Cells % 0 %; Platelet Count 187 10^3/cmm (130-400); Red Blood Count 2.36 10^6/uL (4.1-5.3); Red Cell Distribution Width 17.8 % (12.1-15.1)
[2021-02-16 06:49] LABS: Glucose Point of Care 119 mg/dL (70-110)
[2021-02-16 07:01] LABS: Blood Urea Nitrogen 43 mg/dL (8-23); Carbon Dioxide 24 mmol/L (22-29); Chloride 97 mmol/L (98-107); Glucose 98 mg/dL (65-115); Osmolality Calculated 293 mOsm/kg (285-295); Sodium 136 mmol/L (136-145)
[2021-02-16 07:02] LABS: Anion Gap 19.2 (5-19); Potassium 4.2 mmol/L (3.5-5.1)
--- NOTE | 2021-02-16 08:11 | SUR.PREOP ---
PATIENT REPORTS NO PAIN OR DISCOMFORT PRIOR TO THE START OF THE PROCEDURE.
[2021-02-16] MEDS: regadenoson 0.4 Mg/5 ml Syringe IVP (08:17)
[2021-02-16] MEDS: pantoprazole 40 mg SDV IVP (10:08)
[2021-02-16] MEDS: escitalopram 10 mg Tablet 20 MG PO (10:12)
[2021-02-16] MEDS: docusate sodium 100 mg Capsule PO ×2 (10:12→18:26)
[2021-02-16] MEDS: atorvastatin 40 mg Tablet 80 MG PO (10:12)
[2021-02-16] MEDS: aspirin 81 mg EC Tablet PO (10:13)
--- NOTE | 2021-02-16 10:58 | PM.PN ---
Subjective Subjective: Interval history: Patient overall feels better. No evidence of bleeding per orifices. Stable H&H. Medications: Reviewed: Yes Vitals/I&O/Wt Last Vital Signs Temp 97.8 F 02/16/21 08:00 Pulse 81 02/16/21 08:31 Resp 16 02/16/21 08:00 BP 101/55 02/16/21 08:31 Pulse Ox 100 02/16/21 08:00 02/15/21 02/16/21 02/16/21 22:59 06:59 14:59 Intake Total 550 / 790 480 / 1270 480 / 480 Output Total 3327 / 3327 Balance -2777 / -2537 480 / -2057 480 / 480 Weight last 48 hrs Weight 247 lb 2 oz Weight 244 lb 14.937 oz Weight 251 lb 7 oz Physical Exam Narrative: EXAM NARRATIVE: Patient is conscious alert oriented X3 BMI 34.5 Head and neck examination PERRLA no masses no cervical lymphadenopathy no jaundice Abdomen nontender nondistended soft no organomegaly guarding or rigidity/no signs of peritonitis Obese Data : 02/16/21 05:20 02/16/21 05:20 A&P Assessment and plan (1) Occult blood in stools: As of now there is no evidence of active bleeding, likely the patient would benefit from diagnostic EGD and colonoscopy as an outpatient. I did discuss with the patient his spouse if there is a further concern we can certainly accommodate during this hospitalization. Patient and spouse believe it is reasonable to have it done as an outpatient unless something will change and bring the patient back to the ER. Patient's H&H has been stable Tolerating p.o. intake 1500 Thru the day patient and his spouse expressed their concerns that if something would evolve during their trip to [place] and will be a while before they get to have their scopes done and they prefer to have them done while they are in the hospital.So will plan to perform EGD and Colonsocopy tomorrow in the GI lab. Assurance and education All questions have been answered and all concerns have been addressed to patient's satisfaction. Thank you for consulting general surgery to participate taking care Mr. Jerez Status: Acute Attestations Medical Necessity Statement*: Per admitting service Time Spent in Patient Care: (>than 50% of time spent in counselling and/or direct pt care on unit). Coding Level of Care Code Acute Bowling Ball Patcher for Chg Fwd Diagnoses Occult blood in stools R19.5
--- NOTE | 2021-02-16 11:10 | PM.MISC ---
Miscellaneous Note Purpose of Documentation: Renal Note Brief Note: Patient currently out of room in stress test. Case discussed with his . I will review bedside in the morning. Dialysis went well yesterday. No further shortness of breath or chest pain. No hematochezia, melena. Dialysis will be planned for tomorrow. Please call me if there is any concerns today. Link Meek MD Nephrology [phone] Patient seen and examined via telemedicine, with the assistance of the bedside RN
--- NOTE | 2021-02-16 11:45 | NMCV_ITS ---
NM feliciano perf SPECT r/s* [id number] Morales Jerez Age: 75 Gender: M : 1945 Exam Date: 02/16/2021 07:19 Ordering Phys: Jennifer Ventura MD Technologist: ANGELIA Guo Exam Location: [facility] Indications: SHORTNESS OF BREATH STRESS TEST Please see separate stress test report in [facility] for full findings IMAGE PROTOCOL Rest/Stress 1 Lexiscan Day Radiopharmaceutical Dose (mCi) Administration Site Administered by Rest: Tc-99m 10.9 IV ANGELIA Schwartz Sestamibi Stress:Tc-99m 32.3 IV ANGELIA Schwartz Sestamibi Rest: 16-Feb-2021 60 Discovery 630 Stress: 16-Feb-2021 30 Discovery 630 0.4mg Lexiscan. Supine position only as patient was unable to lay prone. SPECT RESULTS Technical Quality: Excellent Raw Data Analysis: Normal Image Corrections: No attenuation or motion correction applied Summed Stress Score: 4 Summed Rest Score: 5 Summed Difference Score: 0 PERFUSION FINDINGS Moderate area of moderately decreased tracer uptake in the basal and mid inferolateral and apical lateral regions. No significant reversibility was noted in these regions FUNCTIONAL RESULTS (calculated via Gated SPECT) Stress Image LV EF (%): 68 Stress EDV (mL):118 TID: 1.14 Stress ESV (mL):38 FUNCTIONAL FINDINGS: Segmental wall motion analysis revealing no gross wall motion normalities IMPRESSIONS 1. Myocardial perfusion imaging revealing moderate area of persistent decreased tracer uptake in the inferolateral and apical lateral region, suggestive of myocardial scarring versus attenuation artifact. 2. Normal LV ejection fraction of 68%. 3. LV wall motion analysis revealing no gross wall motion normalities. 4. Normal LV volume. Slightly elevated transient ischemic dilatation ratio of 1.14, most likely an nonspecific finding. Possibly no significant coronary ischemia, based on the above findings Dr Lorenzo Bains MD [facility] (Electronically Signed) Final Date: 16 February 2021 14:10 S
--- NOTE | 2021-02-16 12:06 | P.PN_ITS ---
Subjective Subjective: Interval history: No recurrence of chest pain, hemoglobin stable around 8.0, Patient and contemplating whether they would benefit from EGD colonoscopy during the hospitalization versus waiting for it in [place] Patient is scheduled for stress test Vitals/I&O/Wt Last Vital Signs Temp 97.6 F 02/16/21 12:00 Pulse 76 02/16/21 12:00 Resp 18 02/16/21 12:00 BP 95/62 02/16/21 12:00 Pulse Ox 92 02/16/21 12:00 02/15/21 02/16/21 02/16/21 22:59 06:59 14:59 Intake Total 550 / 790 480 / 1270 480 / 480 Output Total 3327 / 3327 Balance -2777 / -2537 480 / -2057 480 / 480 Weight last 48 hrs Weight 112.094 kg Weight 111.1 kg Weight 114.05 kg Physical Exam Narrative: EXAM NARRATIVE: No complaints saturating well on room air at the bedside S1, S2 variable Abdomen soft Lower extremity no edema Nonfocal neuro exam Saturating well on room air Data : 02/16/21 05:20 02/16/21 05:20 A&P Assessment and plan (1) Occult blood in stools: Status: Acute (2) Atrial fibrillation: Status: Acute (3) Diabetes: Status: Acute (4) Coronary artery disease: Status: Acute (5) Chest pain: Status: Acute (6) End stage renal disease: Status: Acute (7) Anemia: Status: Acute Qualifiers: Anemia type: due to chronic kidney disease Chronic kidney disease stage: on chronic dialysis Qualified Code(s): N18.6 - End stage renal disease; D63.1 - Anemia in chronic kidney disease; Z99.2 - Dependence on renal dialysis (8) Elevated troponin: Status: Acute Additional A&P Information Unstable angina: Stress test today Echo is unremarkable GI blood loss acute anemia with underlying anemia of chronic disease Patient has been getting iron, hemoglobin has been stable after blood transfusion, status post 2 units, History of A. fib: Advised patient to hold aspirin and anticoagulating agent for at least next 2 weeks repeat H&H End-stage renal disease nephro on board diabetes: Euglycemic Renal dialysis diet Full code DVT prophylaxis contraindicated Attestations Medical Necessity Statement*: Discharge within next 24 hours Time Spent in Patient Care: less than 15 minutes Coding Level of Care Code Acute Visual Merchandiser for Chg Fwd Diagnoses Occult blood in stools R19.5 Atrial fibrillation I48.91 Diabetes E11.9 Coronary artery disease I25.10 Chest pain R07.9 End stage renal disease N18.6 Anemia N18.6; D63.1; Z99.2 Anemia type: due to chronic kidney disease Chronic kidney disease stage: on chronic dialysis Elevated troponin R77.8
[2021-02-16 12:17] LABS: Glucose Point of Care 166 mg/dL (70-110)
[2021-02-16] MEDS: calcium acetate 667 mg Capsule 1334 MG PO ×2 (12:28→18:26)
[2021-02-16] MEDS: insulin lispro 100 unit/1 mL SUBCUT ×2 (12:28→18:27)
[2021-02-16] MEDS: peg /e-lyte soln 4,000 mL Btl 1500 ML PO (15:19)
[2021-02-16 17:07] LABS: Glucose Point of Care 169 mg/dL (70-110)
[2021-02-16] MEDS: pantoprazole DR 40 mg Tablet PO (18:27)
[2021-02-16 21:32] LABS: Glucose Point of Care 151 mg/dL (70-110)
[2021-02-16] MEDS: insulin glargine 100 units/1 mL 15 UNIT SUBCUT (23:06)
[2021-02-17] VITALS (14 sets, daily range): BP systolic 84–130; BP diastolic 42–89; PULSE 59–90; RESP 16–20; TEMP 36.1–37; O2SAT 92–100
--- NOTE | 2021-02-17 04:29 | PC.NURSE ---
Got order from Dr. Shannon to only give half his dose of Lantus and hold his sliding scale d/t him being NPO and having bowel prep done.
[2021-02-17 05:35] LABS: Basophils % 0.2 %; Eosinophils # 0.1 10^3/uL (0.0-0.8); Eosinophils % 1.3 %; Hematocrit 22.3 % (42.0-52.0); Lymphocytes # 1.4 10^3/uL (0.8-4.8); Lymphocytes % 16.8 %; Mean Corpuscular HGB Conc 31.4 g/dL (30.0-36.0); Mean Corpuscular Volume 105.2 fl (80-94); Mean Platelet Volume 10.4 fL (7.4-10.4); Monocytes # 0.7 10^3/uL (0.2-0.9); Neutrophils # 6.09 10^3/uL (1.8-7.7); Neutrophils % 73.2 %; Nucleated Red Blood Cells % 0 %; Platelet Count 177 10^3/cmm (130-400); Red Blood Count 2.12 10^6/uL (4.1-5.3); Red Cell Distribution Width 17.7 % (12.1-15.1); White Blood Count 8.3 10^3/uL (4.0-10.0)
[2021-02-17 06:08] LABS: Anion Gap 21.3 (5-19); Blood Urea Nitrogen 61 mg/dL (8-23); Calcium 8.5 mg/dL (8.5-10.5); Carbon Dioxide 25 mmol/L (22-29); Chloride 94 mmol/L (98-107); Glucose 157 mg/dL (65-115); Osmolality Calculated 305 mOsm/kg (285-295); Potassium 3.3 mmol/L (3.5-5.1); Sodium 137 mmol/L (136-145)
[2021-02-17 06:55] LABS: Glucose Point of Care 139 mg/dL (70-110)
[2021-02-17 08:51] LABS: Hematocrit 21.5 % (42.0-52.0)
[2021-02-17] MEDS: pantoprazole DR 40 mg Tablet PO (09:02)
[2021-02-17] MEDS: docusate sodium 100 mg Capsule PO (09:02)
[2021-02-17] MEDS: calcium acetate 667 mg Capsule 1334 MG PO (09:02)
--- NOTE | 2021-02-17 09:06 | PM.PN ---
Subjective Subjective: Interval history: Mr. Jerez feels okay today with no acute issues. No melena or hematochezia. Hemoglobin did drop from 8 down to 7 remains at 7 on repeat check. He received GoLYTELY yesterday and had loose stool until 3 AM this morning. No other acute issues. No extremity edema, shortness of breath or other hypervolemic issues and no uremic symptoms. Medications: Reviewed: Yes Vitals/I&O/Wt Last Vital Signs Temp 98.1 F 02/17/21 08:00 Pulse 87 02/17/21 08:00 Resp 16 02/17/21 08:00 BP 108/65 02/17/21 08:00 Pulse Ox 93 02/17/21 08:00 Weight last 48 hrs Weight 111.901 kg Weight 112.094 kg Weight 111.1 kg Physical Exam Narrative: EXAM NARRATIVE: Constitutional: Awake, comfortable HEENT: Wet mucosa, no jvp, non icteric Lungs: Bilaterally clear without discernible wheeze or rales in all lung zones CVS: S1 S2, no murmurs Abdo: Soft, BS ok Ext 4: Minimal edema, peripheral perfusion with no cyanosis Neurological: Grossly non-focal Data : 02/17/21 08:13 02/17/21 04:36 A&P Additional A&P Information 1. ESRD They hope to be discharged after the endoscopic procedures today, and will return to her home town and have dialysis tomorrow. If he is not discharged, will provide dialysis for him tomorrow. Prescription 4 hours, 4 L, 3K bath, no heparin. Continue Monday, Monday, Monday schedule Dose medication for GFR less than 15 on dialysis 2. Anemia He does have a history of bleeding from his upper GI tract, and had this back in September requiring endoscopy and cauterization. FOBT positive for EGD Status post 2 units of packed red blood cells, Hb 7g/dL Ferritin elevated, prohibits intravenous iron use S/p EPO, however, this does take a few weeks to take effect. EGD and Colonoscopy today 3. Hemodynamics Runs low at baseline, close monitoring during dialysis 4. Chronic ESRD issues To be managed as an outpatient by his outpatient team including secondary hyperparathyroidism etc. Of note he takes VELPHORO, given some PhosLo while he is admitted Thank you for consultation, it is a pleasure to follow these cases with you Exam and interview performed with aid of bedside RN using telemedicine Time spent 20 min inc > 50% of time in face to face counseling Link Meek MD [facility] [phone] Attestations Medical Necessity Statement*: Eval for ESRD mgmt Coding Level of Care Code Acute Boiler House Mechanic for Brendag Marianne
--- NOTE | 2021-02-17 09:58 | PC.SOCIAL ---
Pg 2 IMM Explained to pt & Pg 2 IMM. No questions voiced. Provied pt a copy. Initialed, dated, & timed a copy & placed in chart.
[2021-02-17 11:28] LABS: Glucose Point of Care 119 mg/dL (70-110)
--- NOTE | 2021-02-17 11:52 | P.PN_ITS ---
Subjective Subjective: Interval history: Patient overall feels about the same. Hemoglobin dropped from 8 down to 7. Medications: Reviewed: Yes Vitals/I&O/Wt Last Vital Signs Temp 98 F 02/17/21 11:27 Pulse 70 02/17/21 11:27 Resp 16 02/17/21 11:27 BP 102/70 02/17/21 11:27 Pulse Ox 96 02/17/21 11:27 Weight last 48 hrs Weight 246 lb 11.2 oz Weight 247 lb 2 oz Weight 244 lb 14.937 oz Physical Exam Narrative: EXAM NARRATIVE: Patient is conscious alert oriented X3 BMI 34.5 Abdomen nontender nondistended soft no organomegaly guarding or rigidity/no signs of peritonitis Obese Data : 02/17/21 08:13 02/17/21 04:36 A&P Assessment and plan (1) Occult blood in stools: Plan of care; After thorough history and physical examination and reviewing the chart, plan to perform a diagnostic esophagogastroduodenoscopy and diagnostic colonoscopy with possible biopsy and possible polypectomy. I discussed with the patient in detail the risks,benefits,alternatives and indications.The risk of aspiration, bleeding, soft tissue injury, perforation of the stomach/esophagus/colon and other potential concomitant complications were explained to the patient in details also the potential need for Thoracotomy and or Laproscoy/Laparotomy to repair any related complications including but not limited to colectomy and or Closotomy. The patient understood this well and did agree to proceed. Rationale was carefully and clearly discussed with the patient.Appropriate informed consent have been reviewed and signed Verbal and written Instructions were given to the patient for colonoscopy prep Thank you for consulting general surgery to participate taking care Mr. Jerez Status: Acute Attestations Medical Necessity Statement*: Per admitting service Time Spent in Patient Care: (>than 50% of time spent in counselling and/or direct pt care on unit) . Coding Level of Care Code Acute Lockstitch Waistline Joiner for Robles Lopes Diagnoses Occult blood in stools R19.5
[2021-02-17] MEDS: sodium chloride 0.9% 1,000 ML 30 ML IV (12:22)
--- NOTE | 2021-02-17 13:18 | P.ANESASSM_ITS ---
Pre-Anesthetic Assessment Pre-Anesthetic Assessment: Height/Weight: Height 1.8 m Weight 111.901 kg Temp Pulse Resp BP Pulse Ox 97 F L 71 20 H 105/68 100 02/17/21 12:12 02/17/21 12:12 02/17/21 12:12 02/17/21 12:12 02/17/21 12:12 Preop Diagnosis: Ocult blood in stool and Anemia Proposed Procedure: Operation Date: 02/17/21 11:45 Proposed Procedures p EGD/COLON(Not Applicable) - Dangelo Pope MD s Colonoscopy(Not Applicable) - Dangelo Pope MD Was Beta Gianluca taken within 24 hours: Yes Was Clonidine taken within 24 hours: N/A Social: Social History: No alcohol and No tobacco Exam: Pre-Anes Outpt Exam: alert, oriented x 3, clear to auscultation bilaterally and regular rate & rhythm Airway: Submandibular: WNL Cervical ROM: WNL MP: 2 Dentition: False and Partials CV/HEM: CV/HEM: Afib, Anemia and CAD : : Chronic renal failure Metabolic: Metabolic: DM and Morbid obesity Anesthetic Plan: ASA status: 3 Anesthesia: General and MAC Risk of > 500 ml blood loss (7ml/kg in children): No Meds/Allergies Current Medications: Current Medications Generic Name Dose Route Start Last Admin Trade Name Freq PRN Reason Stop Dose Admin Hydrocodone Bitart /Acetaminophen 1 tab 02/14/21 09:33 02/15/21 19:38 Hydrocodone-Acet aminophen 10-325 M g Tablet PO 1 tab Q6H PRN Administration Pain Aspirin 81 mg 02/14/21 10:00 02/16/21 10:13 Aspirin 81 Mg Ec Tablet PO 81 mg DAILY PALMIRA Administration Atorvastatin Calci um 80 mg 02/14/21 10:00 02/16/21 10:12 Atorvastatin 40 Mg Tablet PO 80 mg DAILY PALMIRA Administration Calcium Acetate 1,334 mg 02/14/21 18:00 02/17/21 09:02 Calcium Acetate 667 Mg Capsule PO 1,334 mg TIDWM PALMIRA Administration Docusate Sodium 100 mg 02/14/21 10:00 02/17/21 09:02 Docusate Sodium 100 Mg Capsule PO 100 mg BID PALMIRA Administration Escitalopram Oxala te 20 mg 02/14/21 10:00 02/16/21 10:12 Escitalopram 10 Mg Tablet PO 20 mg DAILY PALMIRA Administration Sodium Chloride 1,000 mls @ 30 ml s/hr 02/17/21 12:15 02/17/21 12:22 Sodium Chloride 0.9% IV 30 mls/hr .Q24H PALMIRA Administration Insulin Glargine 15 unit 02/16/21 21:00 02/16/21 23:06 Insulin Glargine 100 Units/1 Ml SUBCUT 15 unit BEDTIME PALMIRA Administration Insulin Human Lisp ro 0 unit 02/14/21 10:00 02/17/21 08:23 Insulin Lispro 1 00 Unit/1 Ml SUBCUT Not Given WM&BEDTIME PALMIRA Protocol Metoprolol Tartrat e 50 mg 02/14/21 10:00 02/15/21 09:00 Metoprolol Tartr ate 50 Mg Tablet PO 50 mg BID PALMIRA Administration Pantoprazole Sodiu m 40 mg 02/16/21 18:00 02/17/21 09:[address] 40 Mg Tablet PO 40 mg BID PALMIRA Administration Senna 8.6 mg 02/15/21 21:00 02/16/21 22:01 Sennosides 8.6 M g Tablet PO Not Given BEDTIME PALMIRA Data Anesthesia CBC & Chem 7: 02/17/21 08:13 02/17/21 04:36 Other Labs: Laboratory Results - last 48 hr 02/13/21 02/15/21 02/15/21 18:41 17:28 20:31 WBC RBC Hgb 8.7 L Hct 26.8 L MCV MCH MCHC RDW Plt Count MPV Neut % (Auto) Lymph % (Auto) [place] % (Auto) Eos % (Auto) Baso % (Auto) Neut # (Auto) Lymph # (Auto) [place] # (Auto) Eos # (Auto) Baso # (Auto) Nucleated RBC % (auto) Nucleated RBCs # Sodium Potassium Chloride Carbon Dioxide Anion Gap BUN Creatinine GFR Calculation Glucose POC Glucose 140 H Calculated Osmolality Calcium Blood Type Rho(D) Type Antibody Screen Crossmatch See Detail 02/15/21 02/16/21 02/16/21 21:05 05:20 05:20 WBC 11.0 H RBC 2.36 L Hgb 8.0 L Hct 24.1 L MCV 102.1 H MCH 33.9 MCHC 33.2 RDW 17.8 H Plt Count 187 MPV 10.5 H Neut % (Auto) 60.1 Lymph % (Auto) 26.4 [place] % (Auto) 8.8 Eos % (Auto) 3.4 Baso % (Auto) 0.5 Neut # (Auto) 6.61 Lymph # (Auto) 2.9 [place] # (Auto) 1.0 H Eos # (Auto) 0.4 Baso # (Auto) 0.1 Nucleated RBC % (auto) 0 Nucleated RBCs # 0.0 Sodium 136 Potassium 4.2 Chloride 97 L Carbon Dioxide 24 Anion Gap 19.2 H BUN 43 H Creatinine 4.7 H GFR Calculation Not Reportable Glucose 98 POC Glucose 248 H Calculated Osmolality 293 Calcium 9.0 Blood Type Rho(D) Type Antibody Screen Crossmatch 02/16/21 02/16/21 02/16/21 06:38 12:01 17:02 WBC RBC Hgb Hct MCV MCH MCHC RDW Plt Count MPV Neut % (Auto) Lymph % (Auto) [place] % (Auto) Eos % (Auto) Baso % (Auto) Neut # (Auto) Lymph # (Auto) [place] # (Auto) Eos # (Auto) Baso # (Auto) Nucleated RBC % (auto) Nucleated RBCs # Sodium Potassium Chloride Carbon Dioxide Anion Gap BUN Creatinine GFR Calculation Glucose POC Glucose 119 H 166 H 169 H Calculated Osmolality Calcium Blood Type Rho(D) Type Antibody Screen Crossmatch 02/16/21 02/17/21 02/17/21 21:27 04:36 04:36 WBC 8.3 RBC 2.12 L Hgb 7.0 L Hct 22.3 L MCV 105.2 H MCH 33.0 MCHC 31.4 D RDW 17.7 H Plt Count 177 MPV 10.4 Neut % (Auto) 73.2 Lymph % (Auto) 16.8 [place] % (Auto) 8.0 Eos % (Auto) 1.3 Baso % (Auto) 0.2 Neut # (Auto) 6.09 Lymph # (Auto) 1.4 [place] # (Auto) 0.7 Eos # (Auto) 0.1 Baso # (Auto) 0.0 Nucleated RBC % (auto) 0 Nucleated RBCs # 0.0 Sodium 137 Potassium 3.3 L Chloride 94 L Carbon Dioxide 25 Anion Gap 21.3 H BUN 61 H Creatinine 5.8 H* GFR Calculation Not Reportable Glucose 157 H POC Glucose 151 H Calculated Osmolality 305 H Calcium 8.5 Blood Type Rho(D) Type Antibody Screen Crossmatch 02/17/21 02/17/21 02/17/21 06:46 08:13 08:13 WBC RBC Hgb 7.0 L Hct 21.5 L MCV MCH MCHC RDW Plt Count MPV Neut % (Auto) Lymph % (Auto) [place] % (Auto) Eos % (Auto) Baso % (Auto) Neut # (Auto) Lymph # (Auto) [place] # (Auto) Eos # (Auto) Baso # (Auto) Nucleated RBC % (auto) Nucleated RBCs # Sodium Potassium Chloride Carbon Dioxide Anion Gap BUN Creatinine GFR Calculation Glucose POC Glucose 139 H Calculated Osmolality Calcium Blood Type O Positive Rho(D) Type Positive Antibody Screen Negative Crossmatch See Detail 02/17/21 11:23 WBC RBC Hgb Hct MCV MCH MCHC RDW Plt Count MPV Neut % (Auto) Lymph % (Auto) [place] % (Auto) Eos % (Auto) Baso % (Auto) Neut # (Auto) Lymph # (Auto) [place] # (Auto) Eos # (Auto) Baso # (Auto) Nucleated RBC % (auto) Nucleated RBCs # Sodium Potassium Chloride Carbon Dioxide Anion Gap BUN Creatinine GFR Calculation Glucose POC Glucose 119 H Calculated Osmolality Calcium Blood Type Rho(D) Type Antibody Screen Crossmatch Cardiac Studies: Echocardiogram 02/14/21
--- NOTE | 2021-02-17 13:36 | ANE.PACU2 ---
Inpatient post-anesthesia follow up: Airway intact: Yes Vital signs: Temperature 97 F Pulse Rate 71 Respiratory Rate 20 Blood Pressure 105/68 Pulse Oximetry 100 Oxygen Delivery Me thod Room Air Oxygen Flow Rate Fraction of Inspir ed Oxygen Hydration adequate: Yes Nausea and vomiting: No Pain level: 1 Mental status: Baseline
--- NOTE | 2021-02-17 16:50 | PM.DCS ---
Discharge Providers Date of Admission: 02/14/21 11:44 Date of Discharge: February 17, 2021 Attending Provider at Admission: Manny Rogers Attending Provider at Discharge: Jennifer Ventura MD Diagnoses at Discharge Discharge Diagnosis (1) Occult blood in stools: Status: Acute Reason for Visit Reason for Visit: SOB Hospital Course Hospital Course History of Present Illness by Dr. Del Toro Morales Jerez is a 75 year old male with past medical history of coronary artery disease, hypertension, atrial fibrillation, on Eliquis, dyslipidemia, COPD, diabetes, chronic anemia, and end-stage renal disease on hemodialysis who is presenting to emergency room with complaints of shortness of breath and chest pain which started about 2 weeks ago and gradually got worse. The patient states that his chest pain got better with nitroglycerin earlier. [place] from [place] and travels with his . They have scheduled their dialysis treatments in different facilities. Last dialysis was in [place] this morning. He was told then that he had severe anemia. Today in the emergency room his hemoglobin is 5.9. He reports one episode of hematuria about 2 months ago which resolved. He reports that his stool is always dark due to medications that he takes for his end-stage renal disease. Never had blood in the stool. He also mentions that his doctors in [place] were considering stress test. His troponin was elevated today 67 with delta being only 4. Sinus rhythm with nonspecific T wave abnormalities and first-degree AV block. No acute ischemia. The patient reports previous anemia Hospital course At the time of presentation there was concern for anemia with ongoing chest pain. Patient was given 2 units of PRBC which improved his hemoglobin however he dropped down to 7 and third unit was given on 02/17. FOBT positive. Cardiac stress test was done which was unremarkable. Echo showed normal/preserved ejection fraction without wall motion abnormality. He went for EGD and colonoscopy afterwards which showed diverticulosis, gastritis esophagitis, a single polyp was removed and sent for biopsy as well. No active source of bleeding was identified. These findings were shared with the patient and his . Nephro was consulted for hemodialysis Monday and Monday. Target hemoglobin above 8 considering history of coronary disease. Patient was advised to follow-up with mechanical commissioning engineer for capsule endoscopy to rule out source of bleeding. Patient understood my directions and verbalized understanding. He is planning to follow-up with mechanical commissioning engineer in [place]. Of note, on Monday patient became hypotensive after dialysis session, I gave him 1 bag of albumin which improved his blood pressure. Repeat H&H at that time was unremarkable. I have counseled patient to follow-up with his PCP and social sciences instructor, he is not a candidate of long-term anticoagulating agent such as Eliquis and with esophagitis/gastritis use of aspirin will be questionable. Patient is motivated and eager to follow-up with his social sciences instructor. After 3 PRBC transfusion, this will be considered significant/major bleed which will contraindicate anticoagulating agent if he has to stay on Eliquis I recommend close follow-up with PCP and restarting Eliquis at least after 4 weeks. All risk factor associated with stroke and A. fib were discussed with the patient. All of his questions were answered to his satisfaction. Physical Exam Narrative: EXAM NARRATIVE: Patient was evaluated after endoscopy Laying flat, supine Hemodynamically stable S1, S2 variable Abdomen soft distended visceral obesity Saturating well on room air Does not look fluid overloaded Venous stasis dermatitis EOMI, PERRLA Nonfocal neuro exam Discharge Data Data Completed and Pending: Completed Studies During Hospitalization Category Date Time Status Sestamibi Stress Test Request Routi ne Exams 02/15/21 11:45 Draft XR chest 1V lawanda ble [id number] Urgent Exams 02/13/21 16:17 Completed NM feliciano perf SPECT r/s* [id number] Routin e Nuc Med 02/16/21 11:45 Completed CV. echo wo/w con trast [id number] Routin e Ultrasound 02/14/21 10:54 Completed Pending at discharge Category Date Time Status Leukocyte Reduced RBC Routine Lab 02/17/21 08:13 Results Type and Screen R outine Lab 02/17/21 08:13 Results Pathology: Surgic al [PTH] Routine Pth 02/17/21 13:42 Received Labs from last 24 hours 02/17/21 02/17/21 02/17/21 11:23 08:13 08:13 WBC RBC Hgb 7.0 L Hct 21.5 L MCV MCH MCHC RDW Plt Count MPV Neut % (Auto) Lymph % (Auto) [place] % (Auto) Eos % (Auto) Baso % (Auto) Neut # (Auto) Lymph # (Auto) [place] # (Auto) Eos # (Auto) Baso # (Auto) Nucleated RBC % (a uto) Nucleated RBCs # Sodium Potassium Chloride Carbon Dioxide Anion Gap BUN Creatinine GFR Calculation Glucose POC Glucose 119 H Calculated Osmolal ity Calcium Blood Type O Positive Rho(D) Type Positive Antibody Screen Negative Crossmatch See Detail 02/17/21 02/17/21 02/17/21 06:46 04:36 04:36 WBC 8.3 RBC 2.12 L Hgb 7.0 L Hct 22.3 L MCV 105.2 H MCH 33.0 MCHC 31.4 D RDW 17.7 H Plt Count 177 MPV 10.4 Neut % (Auto) 73.2 Lymph % (Auto) 16.8 [place] % (Auto) 8.0 Eos % (Auto) 1.3 Baso % (Auto) 0.2 Neut # (Auto) 6.09 Lymph # (Auto) 1.4 [place] # (Auto) 0.7 Eos # (Auto) 0.1 Baso # (Auto) 0.0 Nucleated RBC % (a uto) 0 Nucleated RBCs # 0.0 Sodium 137 Potassium 3.3 L Chloride 94 L Carbon Dioxide 25 Anion Gap 21.3 H BUN 61 H Creatinine 5.8 H* GFR Calculation Not Reportable Glucose 157 H POC Glucose 139 H Calculated Osmolal ity 305 H Calcium 8.5 Blood Type Rho(D) Type Antibody Screen Crossmatch 02/16/21 02/16/21 02/13/21 21:27 17:02 18:41 WBC RBC Hgb Hct MCV MCH MCHC RDW Plt Count MPV Neut % (Auto) Lymph % (Auto) [place] % (Auto) Eos % (Auto) Baso % (Auto) Neut # (Auto) Lymph # (Auto) [place] # (Auto) Eos # (Auto) Baso # (Auto) Nucleated RBC % (a uto) Nucleated RBCs # Sodium Potassium Chloride Carbon Dioxide Anion Gap BUN Creatinine GFR Calculation Glucose POC Glucose 151 H 169 H Calculated Osmolal ity Calcium Blood Type Rho(D) Type Antibody Screen Crossmatch See Detail Vitals: Last Vital Signs Temp 97.6 F 02/17/21 15:46 Pulse 70 02/17/21 15:46 Resp 16 02/17/21 15:46 BP 122/62 02/17/21 15:46 Pulse Ox 98 02/17/21 15:46 Discharge Plan Discharge Patient Disposition: Home Condition: Stable Prescriptions: New omeprazole 40 mg capsule,delayed release(DR/EC) 40 mg PO DAILY Qty: 30 RF: 2 sucralfate 100 mg/mL suspension 1 g PO BID Qty: 200 RF: 0 Continued cyclobenzaprine 10 mg tablet 10 mg PO TID PRN (Reason: Muscle Pain) RF: 0 hydrocodone-acetaminophen 10-325 mg tablet 1 tab PO Q6H PRN (Reason: Pain) RF: 0 FeroSul 325 mg (65 mg iron) tablet 325 mg PO DAILY RF: 0 metoprolol tartrate 50 mg tablet 50 mg PO BID RF: 0 nitroglycerin 0.4 mg tablet, sublingual 0.4 mg sublingual Q5MIN PRN (Reason: Chest Pain) RF: 0 Humalog KwikPen Insulin 100 unit/mL insulin pen See Rx Instructions .ROUTE .COMPLEX RF: 0 escitalopram oxalate 20 mg tablet 20 mg PO DAILY RF: 0 rosuvastatin 40 mg tablet 40 mg PO DAILY RF: 0 Fish Oil 340-1,000 mg capsule 1 cap PO BID RF: 0 Lantus Solostar U-100 Insulin 100 unit/mL (3 mL) insulin pen 30 unit SUBCUT BEDTIME RF: 0 Velphoro 500 mg tablet,chewable 500 mg PO .TID & AT BEDTIME RF: 0 Trulicity 1.5 mg/0.5 mL pen injector 1.5 mg SUBCUT Q7D RF: 0 Discontinued aspirin 81 mg tablet,delayed release (DR/EC) 81 mg PO DAILY RF: 0 Eliquis 2.5 mg tablet 2.5 mg PO BID RF: 0 Discharge Orders: Discharge Order (Routine); Ordered 02/18/21 Ordered By: Jennifer Ventura Discharge Diet: Cardiac Discharge Activity: Increase activity as tolerated Patient Instructions: GI Discharge Instructions, Opioid Safety, Gastritis (DC), Diverticulosis (DC), Capsule Endoscopy (DC), GI Bleeding Discharge Attestations Time Spent in Discharge Care*: less than 30 min Quality Metrics Clinical Quality Measures During this hospital stay, did patient experience: None Coding Level of Care Code Acute Chg FW DC note Diagnoses Occult blood in stools R19.5
[2021-02-17 17:02] LABS: Glucose Point of Care 173 mg/dL (70-110)
--- NOTE | 2021-02-17 17:07 | PM.MISC ---
Miscellaneous Note Note: Patient will go for EGD and colonoscopy today Then will get blood transfusion and dialysis S1, S2 variable Euvolemic N.p.o. Does not look fluid overloaded EOMI, PERRLA Saturating well on room air No active chest pain or shortness of breath Saturating well on room air No joint swelling No neurological deficits Abdomen soft No audible stridor or wheezing Patient will get EGD and colonoscopy today and after that he will get blood transfusion with dialysis plan to discharge him tomorrow
[2021-02-17 22:22] LABS: Glucose Point of Care 140 mg/dL (70-110)
[2021-02-18] VITALS: BP 118/58; PULSE 74; RESP 16; TEMP 36.9; O2SAT 94
[2021-02-18 04:00] VITALS: BP 112/56; PULSE 73; RESP 20; TEMP 37.2; O2SAT 96
[2021-02-18 06:00] VITALS: BMI 34.1
[2021-02-18 07:30] VITALS: BP 80/34; PULSE 73; RESP 16; TEMP 36.5; O2SAT 97
--- NOTE | 2021-02-18 07:30 | PC.NURSE ---
pam searched the floor for a manual cuff to retake the bp. I notified the nurse and she is now looking for it.
[2021-02-18 08:08] VITALS: BP 95/58
--- NOTE | 2021-02-18 09:24 | PM.PN ---
Subjective Subjective: Interval history: He got colonoscopy yesterday, where a polyp was removed. No ramy melena or hematochezia. Dialysis was performed yesterday evening. No other acute issues today, he feels well and is keen to go home. Medications: Reviewed: Yes Vitals/I&O/Wt Last Vital Signs Temp 97.7 F 02/18/21 07:30 Pulse 73 02/18/21 07:30 Resp 16 02/18/21 07:30 BP 95/58 02/18/21 08:08 Pulse Ox 97 02/18/21 07:30 02/17/21 02/18/21 02/18/21 22:59 06:59 14:59 Intake Total 1180 / 1580 240 / 1820 Output Total 2818 / 2818 Balance -1638 / -1238 240 / -998 Weight last 48 hrs Weight 111 kg Weight 111 kg Weight 111.901 kg Physical Exam Narrative: EXAM NARRATIVE: Constitutional: Awake, comfortable HEENT: Wet mucosa, no jvp, non icteric Lungs: Bilaterally clear without discernible wheeze or rales in all lung zones CVS: S1 S2, no murmurs Abdo: Soft, BS ok Ext 4: Minimal edema, peripheral perfusion with no cyanosis Neurological: Grossly non-focal Data : 02/17/21 08:13 02/17/21 04:36 A&P Additional A&P Information 1. ESRD Dialyzed last night, ok for DC with dialysis in OP clinic tomorrow Prescription 4 hours, 4 L, 3K bath, no heparin. Continue Monday, Monday, Monday schedule Dose medication for GFR less than 15 on dialysis 2. Anemia He does have a history of bleeding from his upper GI tract, and had this back in September requiring endoscopy and cauterization. FOBT positive for EGD Status post 2 units of packed red blood cells, Hb 7g/dL Ferritin elevated, prohibits intravenous iron use S/p EPO, however, this does take a few weeks to take effect. EGD noted, will likely need capsule endoscopy on return home 3. Hemodynamics Runs low at baseline, close monitoring during dialysis 4. Chronic ESRD issues To be managed as an outpatient by his outpatient team including secondary hyperparathyroidism etc. Of note he takes VELPHORO, given some PhosLo while he is admitted OK for DC today Thank you for consultation, it is a pleasure to follow these cases with you Exam and interview performed with aid of bedside RN using telemedicine Time spent 20 min inc > 50% of time in face to face counseling Link Meek MD [facility] [phone] Attestations Medical Necessity Statement*: Eval for ESRD Coding Level of Care Code Acute Cable Way Operator for Chg Marianne
[2021-02-18 10:19] LABS: Basophils # 0.1 10^3/uL (0.0-0.1); Basophils % 0.6 %; Eosinophils # 0.2 10^3/uL (0.0-0.8); Eosinophils % 2.2 %; Hematocrit 29.2 % (42.0-52.0); Hemoglobin 9.1 g/dL (11.7-16.6); Lymphocytes # 1.2 10^3/uL (0.8-4.8); Lymphocytes % 15.4 %; Mean Corpuscular HGB Conc 31.2 g/dL (30.0-36.0); Mean Corpuscular Hemoglobin 32.3 pg (28.0-34.0); Mean Corpuscular Volume 103.5 fl (80-94); Mean Platelet Volume 10.2 fL (7.4-10.4); Monocytes # 0.6 10^3/uL (0.2-0.9); Monocytes % 7.2 %; Neutrophils # 5.86 10^3/uL (1.8-7.7); Neutrophils % 74.2 %; Nucleated Red Blood Cells % 0 %; Platelet Count 189 10^3/cmm (130-400); Red Blood Count 2.82 10^6/uL (4.1-5.3); Red Cell Distribution Width 20.8 % (12.1-15.1); White Blood Count 7.9 10^3/uL (4.0-10.0)
== END 2021-02-18 10:05 | disposition home or self-care (01) | DRG 811 ==
LOC: ER 19:13 → MEDSURG 21:16
PROVIDERS: Internal Medicine; Surgery; Admitting Provider Internal Medicine; Emergency Provider Emergency Medicine; Visit Provider Internal Medicine
PROC: 0DJ08ZZ Inspection of Upper Intestinal Tract, Via Natural or Artificial Opening Endoscopic (ICD-10-PCS; CPT 43235; principal; 2021-02-17 11:45)
PROC: 0DJD8ZZ Inspection of Lower Intestinal Tract, Via Natural or Artificial Opening Endoscopic (ICD-10-PCS; CPT 45378; 2021-02-17 11:45)
DX: D62 Acute posthemorrhagic anemia (principal); N18.6 End stage renal disease; I12.0 Hypertensive chronic kidney disease with stage 5 chronic kidney disease or end stage renal disease; E87.1 Hypo-osmolality and hyponatremia; N25.81 Secondary hyperparathyroidism of renal origin; I25.110 Atherosclerotic heart disease of native coronary artery with unstable angina pectoris; E11.22 Type 2 diabetes mellitus with diabetic chronic kidney disease; D63.1 Anemia in chronic kidney disease; R19.5 Other fecal abnormalities; K21.00 Gastro-esophageal reflux disease with esophagitis, without bleeding; K29.70 Gastritis, unspecified, without bleeding; K63.5 Polyp of colon; K57.30 Diverticulosis of large intestine without perforation or abscess without bleeding; I48.91 Unspecified atrial fibrillation; I95.9 Hypotension, unspecified; E66.01 Morbid (severe) obesity due to excess calories; Z68.34 Body mass index [BMI] 34.0-34.9, adult; E78.5 Hyperlipidemia, unspecified; J44.9 Chronic obstructive pulmonary disease, unspecified; Z99.2 Dependence on renal dialysis; Z79.01 Long term (current) use of anticoagulants; Z95.5 Presence of coronary angioplasty implant and graft; Z79.82 Long term (current) use of aspirin; Z79.4 Long term (current) use of insulin; Z87.19 Personal history of other diseases of the digestive system
CPT/HCPCS: 36415; 36416; 36430; 43235; 45385; 71045; 78452; 80048; 80053; 82274; 82607; 82728; 82746; 82962; 83540; 83735; 84466; 84484; 85014; 85018; 85025; 86850; 86900; 86920; 88305; 93005; 93017; 96372; 99285; A9500; C8929; C9113; G0378; J1815 ×2; J2370; J2704; J2785; J7030; P9016; P9040; P9041; Q3014; Q4081; Q9956